=== PATIENT | male | born 1955 | race Caucasian/White ===

== ENCOUNTER → 2020-01-16 11:10 | Outpatient (CLI) | payer MEDICARE, SELFPAY ==
[2020-01-16 12:43] LABS: Basophils # 0.2 K/mm3 (0-0.2); Basophils % 1.6 % (0.1-2.0); Eosinophils # 0.4 K/mm3 (0.0-0.4); Eosinophils % 3.8 % (0.1-12.0); Hematocrit 45.5 % (42.0-52.0); Hemoglobin 14.6 g/dL (14.1-18.0); Lymphocytes % 31.3 % (10-50); Mean Corpuscular Hemoglobin 27.8 pg (27.0-31.2); Mean Corpuscular Volume 86.7 fl (80-94); Mean Platelet Volume 7.8 fl (7.4-10.4); Monocytes # 0.6 K/mm3 (0.1-1.0); Monocytes % 6.2 % (1.7-9.3); Neutrophils # 5.4 K/mm3 (1.8-7.8); Neutrophils % 57.1 % (37.0-80.0); Platelet Count 309 K/mm3 (142-424); Red Blood Count 5.25 M/mm3 (4.60-6.20); White Blood Count 9.4 K/mm3 (4.8-10.8)
[2020-01-16 13:18] LABS: Erythrocyte Sedimentation Rate 6 mm/hr (0-20)
[2020-01-17 14:56] LABS: Anti-Centromere B Antibodies <0.2 AI (0.0-0.9); Anti-Jo-1 <0.2 AI (0.0-0.9); Anti-Smith Antibody <0.2 AI (0.0-0.9); Antichromatin Antibodies <0.2 AI (0.0-0.9); Antiscleroderma-70 Antibodies <0.2 AI (0.0-0.9); RNP Antibodies <0.2 AI (0.0-0.9); Sjogren's Anti-SS-A <0.2 AI (0.0-0.9); Sjogren's Anti-SS-B <0.2 AI (0.0-0.9)
[2020-01-18 10:28] LABS: Anti-DNA (DS) Ab Qn 14 IU/mL (0-9)
== END ==
PROVIDERS: Visit Provider Specialist
DX: M35.3 Polymyalgia rheumatica (principal); R41.3 Other amnesia; R51 Headache
CPT/HCPCS: 36415; 85025; 85651; 86225; 86235

== ENCOUNTER → 2020-01-17 11:06 | Outpatient (CLI) | payer MEDICARE, SELFPAY | PROVIDERS: PCP Family Medicine; Visit Provider Specialist | DX: R41.3 Other amnesia (principal); R51 Headache; M35.3 Polymyalgia rheumatica ==

== ENCOUNTER → 2020-01-24 13:52 | Outpatient (CLI) | payer MEDICARE, SELFPAY ==
--- NOTE | 2020-01-24 13:52 | MR_ITS ---
PROCEDURE: MR ANGIO HEAD WO CON CLINICAL INDICATION: evaluation for MEDICAL DOCTOR [employer]UCLE[employer] MEDICINE vasculitis Memory loss, progressive memory loss, COMPARISON: No exams were available for comparison TECHNIQUE: 3D [id number] images performed without contrast. FINDINGS: There is a moderate degree of motion artifact which does obscure fine detail especially of the small vessels. There is occlusion of the right internal carotid artery. The right middle cerebral and anterior cerebral arteries reconstitute from the [id number]. The vertebral arteries are not imaged. The basilar artery has an unremarkable appearance. No large aneurysms are evident. Small aneurysms may not be seen due to the motion artifact. No obvious arteriovenous malformation. Single-shot MRV is unremarkable IMPRESSION: 1. Limited study secondary to motion artifact. No large aneurysms. Small aneurysms may not be seen with this technique. 2. Occlusion of the right internal carotid artery with reconstitution of the right MCA and anterior cerebral artery via the [id number] Dictated by: Austin Nieves MD 01/25/2020 08:22 Electronically signed by Austin Nieves MD in [facility] 01/25/2020 08:22
== END ==
PROVIDERS: PCP Family Medicine; Visit Provider Specialist
DX: M35.3 Polymyalgia rheumatica (principal); R41.3 Other amnesia; R51 Headache
CPT/HCPCS: 70544

== ENCOUNTER → 2020-01-31 15:29 | Outpatient (CLI) | payer MEDICARE, SELFPAY ==
--- NOTE | 2020-01-31 15:29 | CT_ITS ---
PROCEDURE: CT HEAD/BRAIN WO CON CLINICAL INDICATION: rt internal carotid artery occlus, eval for stroke Confusion COMPARISON: MR ANGIO HEAD WO CON from 01/24/2020 TECHNIQUE: Axial images obtained. All CT scans at the facility use one or more dose reduction, viz: automated exposure control, ma/kV adjustment per patient size (including targeted exams where dose is matched to indication, i.e. head), or iterative reconstruction technique. FINDINGS: No midline shift, mass effect, intracranial hemorrhage, hydrocephalus, or extra-axial fluid collection is evident. There is generalized atrophy with hypoattenuation of the periventricular white matter consistent with microangiopathic changes. The calvarium has an unremarkable appearance. No mastoid effusion. No sinus air-fluid level. There is calcification of both internal carotid arteries. There is mild mucosal thickening of the ethmoid sinuses IMPRESSION: No acute intracranial finding Dictated by: Austin Nieves MD 01/31/2020 19:08 Electronically signed by Austin Nieves MD in [facility] 01/31/2020 19:08
== END ==
PROVIDERS: PCP Family Medicine; Visit Provider Specialist
DX: R41.3 Other amnesia (principal); R51 Headache
CPT/HCPCS: 70450

== ENCOUNTER → 2020-02-09 08:43 | Outpatient (CLI) | payer MEDICARE, SELFPAY ==
[2020-02-09 10:08] LABS: Chol/HDL Ratio 4.9 (1-3.5); Cholesterol 233 mg/dl (140-200); HDL Cholesterol 48 mg/dl (40-60); Triglycerides 202 mg/dl (30-150); VLDL Cholesterol 40 mg/dL (0-40)
[2020-02-09 10:19] LABS: Direct LDL Cholesterol 170.89 mg/dL (100-129)
== END ==
PROVIDERS: Visit Provider Specialist
DX: I65.29 Occlusion and stenosis of unspecified carotid artery (principal)
CPT/HCPCS: 36415; 80061

== ENCOUNTER → 2020-03-18 13:40 | Outpatient (CLI) | payer MEDICARE, SELFPAY ==
[2020-03-18 16:00] LABS: Blood Urea Nitrogen 14 mg/dl (9-20); Calcium 9.4 mg/dl (8.4-10.2); Carbon Dioxide 24 mmol/L (22.0-30.0); Chloride 107 mmol/L (98-107); Estimated Glomerular Filt Rate 85 ml/min (>60); GFR (African American) 102 ML/MIN (>60); Glucose 90 mg/dl (74-100); Sodium 141 mmol/L (136-145)
== END ==
PROVIDERS: Visit Provider Specialist
DX: I65.23 Occlusion and stenosis of bilateral carotid arteries (principal)
CPT/HCPCS: 36415; 80048

== ENCOUNTER → 2020-03-19 12:40 | Outpatient (CLI) | payer MEDICARE, SELFPAY ==
--- NOTE | 2020-03-19 12:41 | CT_ITS ---
Procedure: CT ANGIO NECK CLINICAL HISTORY: calcification-bilat carotid arteries as seen on CT COMPARISON: No exams were available for comparison TECHNIQUE: IV Contrast: 100ml Optiray 350 Axial images obtained with sagittal and coronal reformats. All CT scans at the facility use one or more dose reduction, viz: automated exposure control, ma/kV adjustment per patient size (including targeted exams where dose is matched to indication, i.e. head), or iterative reconstruction technique. FINDINGS: There is a 50 percent stenosis of the proximal left subclavian artery. Left vertebral artery is dominant. There are non critical stenotic atheromatous changes of the proximal left internal carotid artery and cavernous portion of the left internal carotid artery. There is occlusion of proximal right internal carotid artery. The arterial anatomy of the anterior, middle, and the posterior fossa is unremarkable. 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
== END ==
PROVIDERS: PCP Family Medicine; Visit Provider Specialist
DX: I65.23 Occlusion and stenosis of bilateral carotid arteries (principal)
CPT/HCPCS: 70498; Q9967

== ENCOUNTER → 2020-04-22 10:32 | Outpatient (CLI) | payer MEDICARE, SELFPAY ==
--- NOTE | 2020-04-22 10:33 | CA_ITS ---
APPROVED REPORT EXAM: Comprehensive 2D, Doppler, and color-flow Echocardiogram Coroner: Anna Ramirez RDCS Ht: 6 ft 0 in Wt: 206lbs BSA: 2.16 BP: 138/88 mmHg Indications: SOA 2D Dimensions LVOT 2.26 cm (M/F) 1.5-2.5 M-Mode Dimensions RVDd 3.65 cm (0.9-2.6) LVDd 4.55 cm (3.5-5.7) LVDs 3.40 cm (3.5-5.7) IVSd 1.02 cm (0.6-1.1) PWd 1.02 cm (0.6-1.1) EF (Teich) 50.10% FS 25.30% EDV (Teich) 94.90 mL ESV (Teich) 47.40 mL LV Diastology E/A Ratio 0.70 Mitral Valve MV A Velocity 52.00 (40-130 cm/s) Left Ventricle Left atrium is mildly enlarged, left ventricle is normal size, visually estimated ejection fraction 55% with no regional wall motion abnormality, grade 1 diastolic dysfunction seen without tissue Doppler evidence of raise left atrial pressure. Right Ventricle Right atrium and right ventricle are mildly enlarged with normal contractility. Aortic Valve Aortic valve is minimally thickened and fibrosed, there is no aortic stenosis or aortic insufficiency. Mitral Valve Mitral valve leaflets are minimally thickened, there is no mitral stenosis, there is mild mitral regurgitation. Tricuspid Valve Tricuspid valve is grossly normal, there is mild tricuspid regurgitation, calculated right ventricular systolic pressure is 40 mmHg. Pulmonic Valve Pulmonic valve is poorly visualized. Great Vessels Aortic root is normal size. Pericardium No significant pericardial effusion noted. Conclusion 1. Mild biatrial enlargement, normal left ventricular size, preserved left ventricular systolic function, visually estimated ejection fraction 55% with no regional wall motion abnormality, grade 1 diastolic dysfunction seen without tissue Doppler evidence of raise left atrial pressure. 2. Mildly enlarged right ventricle with normal contractility. 3. Mild mitral and tricuspid regurgitation, calculated right ventricular systolic pressure is 40 mmHg. 4. No significant pericardial effusion noted. Electronically signed by : Javier Garcia, 04/22/2020 19:14:18
== END ==
PROVIDERS: PCP Family Medicine; Visit Provider Internal Medicine Cardiovascular Disease
DX: R06.00 Dyspnea, unspecified (principal); E78.5 Hyperlipidemia, unspecified; I10 Essential (primary) hypertension; I65.29 Occlusion and stenosis of unspecified carotid artery; I73.9 Peripheral vascular disease, unspecified
CPT/HCPCS: 93306

== ENCOUNTER → 2020-04-24 10:41 | Outpatient (CLI) | payer SELFPAY ==
--- NOTE | 2020-04-24 10:42 | CT_ITS ---
PROCEDURE: CT HEART W CALCIUM SCORE CLINICAL HISTORY: eval for cad COMPARISON: No exams were available for comparison TECHNIQUE: Axial images obtained with sagittal and coronal reformats. All CT scans at the facility use one or more dose reduction, viz: automated exposure control, ma/kV adjustment per patient size (including targeted exams where dose is matched to indication, i.e. head), or iterative reconstruction technique. FINDINGS: The coronary artery calcium score is 618 indicating extensive calcific plaque burden with very high cardiovascular disease risk. Incidental note is made of a medium-sized hiatal hernia and nonspecific thickening of the esophagus. IMPRESSION: Extensive calcific plaque burden with very high cardiovascular disease risk Hiatal hernia with thickened esophagus Dictated by: Austin Nieves MD 04/25/2020 07:42 Electronically signed by Austin Nieves MD in [facility] 04/25/2020 07:42
== END ==
PROVIDERS: PCP Family Medicine; Visit Provider Internal Medicine Cardiovascular Disease
DX: Z13.6 Encounter for screening for cardiovascular disorders (principal); R06.00 Dyspnea, unspecified; E78.5 Hyperlipidemia, unspecified; I10 Essential (primary) hypertension; I65.29 Occlusion and stenosis of unspecified carotid artery; I73.9 Peripheral vascular disease, unspecified
CPT/HCPCS: 75571

== ENCOUNTER → 2020-05-15 07:51 | Outpatient (CLI) | payer MEDICARE, SELFPAY ==
--- NOTE | 2020-05-15 | CA_ITS ---
APPROVED REPORT Exam: Exercise Treadmill Technologist: Aura Wagner Ht: 6 ft 0 in Wt: 200 lbs BSA: 2.13 m2 HR: 84 bpm BP: 139/81 mmHg Indications: Elevated calcium score, chest pain, shortness of breath Medical History Medications: Aspirin,,,,, Metoprolol,,,,, Losartan,,,,, MeMANTINE,,,,, RoSUVASTATIN,,,,, Stress Test Details Test: Umang HR Resting HR: 70 bpm Max Heart Rate (APMHR): 155 bpm Max HR Achieved: 130 bpm Target HR (85% APMHR): 131 bpm % of APMHR: 83 Recovery HR: 76 bpm BP Resting BP: 139.0/91.0 mmHg Max BP: 153.0/82.0 mmHg Recovery BP: 133.0/91.0 mmHg ECG Clinical Exercise duration: 04:32 min Highest Stage Achieved: Exercise capacity: 7.0 METs Stress ECG Conclusion Resting ECG: Normal sinus rhythm, T wave abnormalities inferiorly Patient exercised 4:32 on Umang Protocol, stopping due to shortness of air. Symptoms: No chest pain. Arrhythmias/Ectopy: Occasional PVC. ST-T Changes: Exaggeration of baseline T wave abnormalities. With exercise there is additional millimeter ST segment depression noted in the inferior leads. The EKG portion of the exercise treadmill stress test is nondiagnostic due to baseline abnormal EKG as well as patient not achieving the target heart rate. Conclusion: Nondiagnostic exercise treadmill stress test due to baseline abnormal EKG and patient not achieving the target heart rate, repeat study with myocardial perfusion imaging is recommended. Test Summary . Standing . . . . . Stop exercise at 04:32 . . . . . . Electronically signed by : Javier Garcia, 05/15/2020 18:04:49
== END ==
PROVIDERS: PCP Family Medicine; Visit Provider Internal Medicine Cardiovascular Disease
DX: R06.02 Shortness of breath (principal); R93.1 Abnormal findings on diagnostic imaging of heart and coronary circulation; I20.8 Other forms of angina pectoris
CPT/HCPCS: 93017

== ENCOUNTER 2020-06-20 08:33 | Day surgery (SDC) | payer MEDICARE, SELFPAY ==
[2020-06-20] VITALS (15 sets, daily range): BP systolic 120–185; BP diastolic 85–106; PULSE 49–75; RESP 16–18; TEMP 36.7; O2SAT 94–99; BMI 26.9
--- NOTE | 2020-06-20 09:00 | IR_ITS ---
APPROVED REPORT Patient Location: Outpatient PROCEDURES Left heart catheterization Left ventriculogram Selective coronary angiogram Drug-eluting stent deployment to the ostial proximal mid dominant right coronary in a contiguous manner Catheter placed in left subclavian artery Left subclavian artery selective angiogram INDICATION Angina pectoris, Coronary artery disease, Calcium score greater than 600, Known left subclavian artery stenosis Informed consent was obtained prior to the procedure. COMPLICATIONS NONE Estimated Blood Loss: less than 10 mls TECHNIQUE One percent lidocaine was used to anesthetize the right groin. The right femoral artery was accessed via the Seldinger technique. A 4-Vietnamese sheath was placed in the right femoral artery. The JL-4 and JR-4 catheter was also used to perform left heart catheterization left ventriculogram and selective coronary angiogram. At the end the diagnostic angiogram 4 Vietnamese sheath was exchanged for a 6 Vietnamese sheath and therapeutic heparin was administered giving a therapeutic ACT over 300. Eventually a long 6 Vietnamese 45 cm sheath was required due to tortuosity in the iliofemoral system. Ultimately a JR4 catheter was used and gauge the right coronary artery and a Choice PT extra-support wire was placed distally.two 3 mm x 38 mm resolute lucita stents were placed in the midsegment proximal and ostial segment in a contiguous manner. The first stent was deployed at 14 annelise with the proximal stent being deployed at 20 annelise. At the end of the procedure there was distal spasm therefore nitroglycerin was administered intra-arterially. At the end of the procedure there was excellent SARAH-3 flow. A small contained extravasation was identified distally most likely from the wire. An angiographic results the apparatus was removed the groin was reprepped gloves were changed sheath was removed good hemostasis was achieved using TR banding patient transferred to the postop holding in stable condition. During the diagnostic portion of the procedure the JR4 catheter was used to selectively intubate the left subclavian artery where a 10 mm Kennedy stenotic gradient was identified. ANGIOGRAPHIC RESULTS The left main artery Normal The left anterior descending artery Has proximal 10% and mid vessel 10% stenoses. The vessel was tortuous. The circumflex artery Is a nondominant vessel giving rise to a large first obtuse marginal artery. The very is very tortuous and so corkscrew like The right coronary artery Is a large dominant vessel is tortuous and has proximal 30% stenosis followed by an area of vascular ectasia followed by 50% stenosis followed by an additional mid vessel 80% stenosis The KOWALSKI ventriculogram reveals Normal 65% The left ventricular end-diastolic pressure 10 mmHg Left subclavian artery has an eccentric cleft-like plaque which produces a 10 mm trans-stenotic gradient. Left vertebral artery is a large-caliber vessel and has an ostial 80% stenosis IMPRESSION Coronary disease as described above Severe left vertebral artery stenosis as described above Mild to moderate left subclavian artery stenosis with a 10 mm transcanal gradient Successful stenting of the ostial proximal mid dominant right coronary severe disease reduced to 0% with 2 drug-eluting stents in a contiguous manner Normal ejection fraction Normal left ventricular end-diastolic pressure Heavily atheromatous infrarenal abdominal aorta with highly tortuous iliofemoral arteries PLAN 1. Dual antiplatelet therapy 2. Avoidance of tobacco products 3. LDL less than 55 4. Headache rehabilitation 5. Echocardiogram in 6 hours just prior to discharge to make sure the extravasation did not achie
[2020-06-20 09:17] LABS: Basophils # 0.1 K/mm3 (0-0.2); Basophils % 0.9 % (0.1-2.0); Eosinophils # 0.4 K/mm3 (0.0-0.4); Eosinophils % 4.1 % (0.1-12.0); Hematocrit 44.5 % (42.0-52.0); Hemoglobin 14.6 g/dL (14.1-18.0); Lymphocytes # 2.7 K/mm3 (0.7-4.5); Lymphocytes % 26.9 % (10-50); Mean Corpuscular HGB Conc 32.9 g/dL (31.8-35.4); Mean Corpuscular Hemoglobin 29.4 pg (27.0-31.2); Mean Corpuscular Volume 89.5 fl (80-94); Monocytes # 0.4 K/mm3 (0.1-1.0); Monocytes % 4.4 % (1.7-9.3); Neutrophils # 6.3 K/mm3 (1.8-7.8); Neutrophils % 63.7 % (37.0-80.0); Platelet Count 268 K/mm3 (142-424); Red Blood Count 4.97 M/mm3 (4.60-6.20); White Blood Count 9.9 K/mm3 (4.8-10.8)
[2020-06-20 09:22] LABS: Anion Gap 10.9 mEq/L (5-15); Blood Urea Nitrogen 13 mg/dl (9-20); Calcium 9.7 mg/dl (8.4-10.2); Carbon Dioxide 28 mmol/L (22.0-30.0); Chloride 106 mmol/L (98-107); Creatinine Clearance Estimated 78 mL/min (50-200); Estimated Glomerular Filt Rate 61 ml/min (>60); GFR (African American) 74 ML/MIN (>60); Glucose 105 mg/dl (74-100); Potassium 3.9 mmoL/L (3.5-5.1); Sodium 141 mmol/L (136-145)
[2020-06-20 09:48] LABS: Coronavirus 19 IgG Antibody Negative (Negative); Coronavirus 19 IgM Antibody Negative (Negative)
--- NOTE | 2020-06-20 13:30 | CA_ITS ---
APPROVED REPORT EXAM: Comprehensive 2D, Doppler, and color-flow Echocardiogram Quality Control Assessor: Cathi Diego RT(R) Ht: 6 ft 0 in Wt: 199lbs BSA: 2.13 BP: 122/68 mmHg Indications: CP, HTN, hyperlipidemia, family history of HD, CAD, heart cath today with extravasation seen. limited echo checking for effusion Conclusion 1. Limited transthoracic echocardiogram was performed to look for pericardial effusion 2. Normal left ventricular size preserved left ventricular systolic function. No regional wall motion abnormality in the obtained views 3. No obvious or significant pericardial effusion noted. Electronically signed by : Javier Garcia, 06/20/2020 15:29:12
[2020-06-20 14:39] LABS: CATHL Activated Clotting Time 345 SEC (74-125)
--- NOTE | 2020-06-20 14:58 | HMH.PHACLD ---
Dre Gomez has received discharge medication counseling on the following medications: PATIENT IS CURRENTLY TAKING LOSARTAN 50 MG DAILY, ASPIRIN DR 81 MG DAILY, METOPROLOL SUCCINATE 25 MG DAILY, AND ROSUVASTATIN 20 MG HS. STARTING BRILINTA 90 MG BID AFTER STENTING. DISCUSSED THIS WITH PATIENT'S SISTER WHICH IS A DIGITAL CAMERA TECHNICIAN FOR PATIENT.
== END 2020-06-20 15:09 | disposition home or self-care (01) ==
PROVIDERS: PCP Family Medicine; Visit Provider Internal Medicine
DX: E78.2 Mixed hyperlipidemia (principal); I10 Essential (primary) hypertension; I25.118 Atherosclerotic heart disease of native coronary artery with other forms of angina pectoris; I65.29 Occlusion and stenosis of unspecified carotid artery; I70.203 Unspecified atherosclerosis of native arteries of extremities, bilateral legs; I77.1 Stricture of artery; M79.602 Pain in left arm; R06.02 Shortness of breath; R93.1 Abnormal findings on diagnostic imaging of heart and coronary circulation; Z82.49 Family history of ischemic heart disease and other diseases of the circulatory system; E78.5 Hyperlipidemia, unspecified; Z95.5 Presence of coronary angioplasty implant and graft; I70.8 Atherosclerosis of other arteries
CPT/HCPCS: 36225; 80048; 85025; 85347; 86328; 92928; 93308; 93458; 99152; 99153; C1725; C1760; C1769; C1876; C1894; C9600; J1644; Q9967

== ENCOUNTER → 2020-06-27 09:16 | Outpatient (CLI) | payer MEDICARE, SELFPAY ==
[2020-06-27 09:33] LABS: Basophils # 0.1 K/mm3 (0-0.2); Basophils % 1.1 % (0.1-2.0); Eosinophils # 0.4 K/mm3 (0.0-0.4); Eosinophils % 3.6 % (0.1-12.0); Hematocrit 44.2 % (42.0-52.0); Lymphocytes # 2.4 K/mm3 (0.7-4.5); Lymphocytes % 21.8 % (10-50); Mean Corpuscular HGB Conc 33.9 g/dL (31.8-35.4); Mean Corpuscular Hemoglobin 29.6 pg (27.0-31.2); Mean Corpuscular Volume 87.2 fl (80-94); Mean Platelet Volume 7.7 fl (7.4-10.4); Monocytes # 0.6 K/mm3 (0.1-1.0); Neutrophils # 7.7 K/mm3 (1.8-7.8); Neutrophils % 68.5 % (37.0-80.0); Platelet Count 353 K/mm3 (142-424); Red Blood Count 5.07 M/mm3 (4.60-6.20); Red Cell Distribution Width 14.7 % (11.5-17.5); White Blood Count 11.2 K/mm3 (4.8-10.8)
[2020-06-27 09:39] LABS: Chloride 102 mmol/L (98-107); Potassium 3.5 mmoL/L (3.5-5.1); Sodium 140 mmol/L (136-145)
[2020-06-27 09:42] LABS: Anion Gap 16.5 mEq/L (5-15); Blood Urea Nitrogen 20 mg/dl (9-20); Carbon Dioxide 25 mmol/L (22.0-30.0); Estimated Glomerular Filt Rate 44 ml/min (>60); GFR (African American) 53 ML/MIN (>60)
[2020-06-27 09:43] LABS: Calcium 10.1 mg/dl (8.4-10.2); Glucose 120 mg/dl (74-100)
== END ==
PROVIDERS: Visit Provider Internal Medicine
DX: R06.02 Shortness of breath (principal); I25.10 Atherosclerotic heart disease of native coronary artery without angina pectoris; I10 Essential (primary) hypertension
CPT/HCPCS: 36415; 80048; 85025

== ENCOUNTER 2020-06-27 09:27 | Outpatient (RCR) | payer MEDICARE, SELFPAY | END 2020-11-27 13:50 | disposition home or self-care (01) | LOC: PT 09:27 | PROVIDERS: Visit Provider Internal Medicine | DX: Z95.5 Presence of coronary angioplasty implant and graft (principal) | CPT/HCPCS: 93798 ==

== ENCOUNTER 2020-07-03 15:12 | Emergency (ER) | payer MEDICARE, SELFPAY ==
--- NOTE | 2020-07-03 15:06 | ECG_ITS ---
APPROVED REPORT Exam: Resting ECG HR:80 bpm ECG Measurements Heart Rate 80 AXES NV 156 P 57 QRSd 92 QRS 45 QT 362 T 58 QTc 417 Conclusion Normal sinus rhythm Low voltage QRS Borderline ECG Electronically signed by : Quoc Castillo, 07/05/2020 13:52:39
[2020-07-03 15:12] VITALS: BP 112/76; PULSE 83; RESP 24; TEMP 36.4; O2SAT 98; BMI 28.5
--- NOTE | 2020-07-03 15:13 | HMH.EDGENADL ---
ED Disposition Clinical Impression: Acute kidney injury Hypotension Qualifiers: Hypotension type: unspecified hypotension type Qualified Code(s): I95.9 - Hypotension, unspecified Disposition: Home, Self-Care Condition on Discharge: Good Additional Instructions: Stop taking losartan/hydrochlorothiazide. See Dr. Huber in his office tomorrow or Wednesday. Return to the emergency department if symptoms worsen. Referrals: Quoc Huber MD [Primary Care Provider] - - Critical Care Critical Care Time: No Attestation: On , the high probability of a clinically significant, sudden or life threatening deterioration of the following system(s) required my full and direct attention, intervention and personal management. The time I documented below is in addition to time spent performing reported procedures but includes the following listed in this critical care notation. Medical Decision Making - Medical Records Medical records reviewed: Yes: I reviewed the patient's medical records. MR Comment: Reviewed heart cath results. Reviewed last cardiology office visit at which time he had the same complaints of shortness of breath and lightheadedness that he has today. - [place] Inquiry Pt receiving controlled substance: No Vital Signs: 07/03/20 15:12 07/03/20 15:38 07/03/20 17:00 Temperature 97.6 F Temperature Source Oral Pulse Rate Pulse Rate [Left Radial] 83 81 61 Respiratory Rate 24 Blood Pressure Blood Pressure [Right Arm] 112/76 124/86 143/99 H Blood Pressure Mean [Right Arm] 88 98 113 Blood Pressure Source Blood Pressure Source [Right Arm] Automatic Cuff Automatic Cuff Automatic Cuff Blood Pressure Position Blood Pressure Position [Right Arm] Sitting Sitting Sitting 02 Sat by Pulse Oximetry 98 97 98 Oxygen Delivery Method Room Air Nasal Cannula Room Air 07/03/20 18:33 Temperature 97.6 F Temperature Source Oral Pulse Rate 75 Pulse Rate [Left Radial] Respiratory Rate 13 Blood Pressure 137/83 Blood Pressure [Right Arm] Blood Pressure Mean [Right Arm] Blood Pressure Source Automatic Cuff Blood Pressure Source [Right Arm] Blood Pressure Position Sitting Blood Pressure Position [Right Arm] 02 Sat by Pulse Oximetry Oxygen Delivery Method Room Air - Lab Data Lab results reviewed: Yes: I reviewed the patient's lab results. Lab Results 07/03/20 15:10: WBC 10.4, RBC 5.00, Hgb 14.1, Hct 44.0, MCV 88.0, MCH 28.1, MCHC 32.0, RDW 14.1, Plt Count 424, MPV 7.8, Neut % (Auto) 66.0, Lymph % (Auto) 23.4, [place] % (Auto) 5.4, Eos % (Auto) 3.7, Baso % (Auto) 1.4, Neut # (Auto) 6.9, Lymph # (Auto) 2.4, [place] # (Auto) 0.6, Eos # (Auto) 0.4, Baso # (Auto) 0.2 07/03/20 15:10: Sodium 140, Potassium 3.5, Chloride 104, Carbon Dioxide 23, Anion Gap 16.5 H, BUN 29 H, Creatinine 2.30 H, Estimated Creat Clear 41, Estimated GFR 29 L, Est GFR ( Amer) 35 L, Glucose 157 H, Calcium 10.0, Troponin I < 0.01 07/03/20 15:10: Total Bilirubin 0.8, Direct Bilirubin 0.1, Conjugated Bilirubin 0.0, Indirect Bilirubin 0.7, Unconjugated Bilirubin 0.7, AST 30, ALT 14, Alkaline Phosphatase 101, Total Protein 7.8, Albumin 4.4 Result diagrams: 07/03/20 15:10 07/03/20 15:10 Orders (Tests/Meds): ED MEDICATIONS Discontinued Medications Generic Name Dose Route Start Last Admin Trade Name Adamsq PRN Reason Stop Dose Admin Sodium Chloride 1,000 mls @ 999 mls/hr 07/03/20 15:30 07/03/20 15:23 Sod Chlor 0.9% 1000ml Bag IV 07/03/20 16:30 999 mls/hr .Q1H1M SUZI Administration Sodium Chloride 1,000 ml 07/03/20 16:32 07/03/20 17:39 Sodium Chloride 0.9% 1000ml Bag IV 07/03/20 16:33 1,000 ml BOLUS ONE Administration - Radiology Data #1 Image(s): Chest Image Reviewed: Yes I have reviewed radiologist's interpretation PROCEDURE: XR CHEST PORTABLE CLINICAL HISTORY: chest pain COMPARISON: No exams were available for comparison FINDINGS: The cardiomediastinal silhouette and pulmonary
[2020-07-03 15:16] VITALS: BMI 25.7
--- NOTE | 2020-07-03 15:17 | XR_ITS ---
PROCEDURE: XR CHEST PORTABLE CLINICAL HISTORY: chest pain COMPARISON: No exams were available for comparison FINDINGS: The cardiomediastinal silhouette and pulmonary vascularity are within normal limits. The lungs are clear without infiltrates, suspicious nodules, or pleural effusions. There is a small hiatal hernia. No acute bony anomaly. IMPRESSION: Small hiatal hernia otherwise negative Dictated by: Austin Nieves MD 07/03/2020 16:02 Austin Nieves MD in [place] 07/03/2020 16:02
[2020-07-03 15:24] LABS: Basophils # 0.2 K/mm3 (0-0.2); Basophils % 1.4 % (0.1-2.0); Eosinophils # 0.4 K/mm3 (0.0-0.4); Eosinophils % 3.7 % (0.1-12.0); Hemoglobin 14.1 g/dL (14.1-18.0); Lymphocytes # 2.4 K/mm3 (0.7-4.5); Lymphocytes % 23.4 % (10-50); Mean Corpuscular Hemoglobin 28.1 pg (27.0-31.2); Mean Platelet Volume 7.8 fl (7.4-10.4); Monocytes # 0.6 K/mm3 (0.1-1.0); Monocytes % 5.4 % (1.7-9.3); Neutrophils # 6.9 K/mm3 (1.8-7.8); Platelet Count 424 K/mm3 (142-424); Red Cell Distribution Width 14.1 % (11.5-17.5); White Blood Count 10.4 K/mm3 (4.8-10.8)
[2020-07-03 15:32] LABS: Chloride 104 mmol/L (98-107); Potassium 3.5 mmoL/L (3.5-5.1); Sodium 140 mmol/L (136-145)
[2020-07-03 15:35] LABS: Anion Gap 16.5 mEq/L (5-15); Blood Urea Nitrogen 29 mg/dl (9-20); Carbon Dioxide 23 mmol/L (22.0-30.0); Creatinine Clearance Estimated 41 mL/min (50-200); Estimated Glomerular Filt Rate 29 ml/min (>60); GFR (African American) 35 ML/MIN (>60); Glucose 157 mg/dl (74-100)
[2020-07-03 15:38] VITALS: BP 124/86; PULSE 81; O2SAT 97
--- NOTE | 2020-07-03 15:42 | PC.NURSE ---
Dr Trevino speaking with Dr Chaves at this time.
[2020-07-03 16:07] LABS: Troponin I < 0.01 ng/ml (0.00-0.034)
--- NOTE | 2020-07-03 16:10 | PC.NURSE ---
Dr Trevino speaking with Dr Huber
[2020-07-03 16:20] LABS: Alanine Aminotransferase 14 U/L (12-78); Albumin Level 4.4 g/dl (3.5-5.0); Alkaline Phosphatase 101 U/L (38-126); Aspartate Amino Transferase 30 U/L (17-59); Bilirubin,Direct 0.1 mg/dl (0.0-0.4); Bilirubin,Indirect 0.7 mg/dL (0.0-0.9); Bilirubin,Total 0.8 mg/dl (0.2-1.3); Bilirubin,Unconjugated 0.7 mg/dL (0.0-1.1); Total Protein,Serum 7.8 g/dl (6.3-8.2)
[2020-07-03 17:00] VITALS: BP 143/99; PULSE 61; O2SAT 98
[2020-07-03 18:33] VITALS: BP 137/83; PULSE 75; RESP 13; TEMP 36.4; O2SAT 98
== END 2020-07-03 18:34 | disposition home or self-care (01) ==
PROVIDERS: Emergency Provider Emergency Medicine; PCP Family Medicine
DX: N17.9 Acute kidney failure, unspecified (principal); I95.9 Hypotension, unspecified; F41.8 Other specified anxiety disorders; I25.10 Atherosclerotic heart disease of native coronary artery without angina pectoris; E78.5 Hyperlipidemia, unspecified; I10 Essential (primary) hypertension; Z95.5 Presence of coronary angioplasty implant and graft; Z79.899 Other long term (current) drug therapy
CPT/HCPCS: 71045; 80048; 80076; 84484; 85025; 93005; 96365; 96367; 99283

== ENCOUNTER → 2020-07-08 09:53 | Outpatient (CLI) | payer MEDICARE, SELFPAY ==
--- NOTE | 2020-07-08 10:01 | US_ITS ---
PROCEDURE: US AORTA CLINICAL INDICATION: AAA AND BILATERAL BRUIT COMPARISON: No exams were available for comparison FINDINGS: There is mild fusiform dilatation of the mid abdominal aorta measuring 3.5 cm in maximum AP dimension. Proximal common iliacs are prominent measuring up to 1.8 cm on the right and 1.6 cm on the left transverse. IMPRESSION: 3.5 cm abdominal aortic aneurysm with mild dilatation of the proximal common iliacs Dictated by: Austin Nieves MD 07/08/2020 13:40 Austin Nieves MD in [facility] 07/08/2020 13:40
--- NOTE | 2020-07-08 10:02 | CA_ITS ---
APPROVED REPORT Character Impersonator: Debra Hamilton RVT Laterality: Bilateral Study Quality: Good Indications: bilateral carotid bruits, occlusion michelle Doppler Spectral Velocity Analysis ECA (R) 111.10/15.40 cm/s ECA (L) 88.50/14.00 cm/s dCCA (R) 55.90/9.20 cm/s dICA (L) 108.30/39.80 cm/s pCCA (R) 58.60/9.20 cm/s Aniceto (L) 83.40/30.20 cm/s pICA (L) 75.60/23.50 cm/s dCCA (L) 70.50/20.20 cm/s pCCA (L) 94.40/23.80 cm/s Vert (L) 28.00/10.80 cm/s ICA/CCA 1.54 Findings Study suggests total occlusion of the right internal cartoid artery unchanged from CTA neck study from 03/19/20. Study suggests 20-49% stenosis of the left internal cartoid artery. Antegrade flow seen in the left vertebral artery. Unable to obtain color flow in the right internal cartoid artery, ? occlusion. 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 Study suggests 20-49% stenosis of the left internal cartoid artery. Antegrade flow seen in the left vertebral artery. Unable to obtain color flow in the right internal cartoid artery, ? occlusion. Electronically signed by : Austin Nieves MD 07/08/2020 15:15:24
== END ==
PROVIDERS: PCP Family Medicine; Visit Provider Internal Medicine Cardiovascular Disease
DX: E78.2 Mixed hyperlipidemia (principal); I10 Essential (primary) hypertension; I25.10 Atherosclerotic heart disease of native coronary artery without angina pectoris; I73.9 Peripheral vascular disease, unspecified; I77.1 Stricture of artery; R06.02 Shortness of breath; R09.89 Other specified symptoms and signs involving the circulatory and respiratory systems; Z82.49 Family history of ischemic heart disease and other diseases of the circulatory system; I65.23 Occlusion and stenosis of bilateral carotid arteries
CPT/HCPCS: 76770; 93880

== ENCOUNTER → 2020-08-08 14:12 | Outpatient (CLI) | payer MEDICARE, SELFPAY ==
[2020-08-08 15:43] LABS: Chloride 104 mmol/L (98-107); Potassium 3.9 mmoL/L (3.5-5.1); Sodium 142 mmol/L (136-145)
[2020-08-08 15:46] LABS: Anion Gap 14.9 mEq/L (5-15); Blood Urea Nitrogen 22 mg/dl (9-20); Calcium 9.7 mg/dl (8.4-10.2); Carbon Dioxide 27 mmol/L (22.0-30.0); Estimated Glomerular Filt Rate 51 ml/min (>60); GFR (African American) 62 ML/MIN (>60); Glucose 88 mg/dl (74-100)
== END ==
PROVIDERS: Visit Provider Internal Medicine Cardiovascular Disease
DX: I10 Essential (primary) hypertension (principal); I25.10 Atherosclerotic heart disease of native coronary artery without angina pectoris; I65.23 Occlusion and stenosis of bilateral carotid arteries; I73.9 Peripheral vascular disease, unspecified; I77.1 Stricture of artery; R09.89 Other specified symptoms and signs involving the circulatory and respiratory systems; Z82.49 Family history of ischemic heart disease and other diseases of the circulatory system
CPT/HCPCS: 36415; 80048

== ENCOUNTER → 2020-12-05 14:38 | Outpatient (CLI) | payer MEDICARE, SELFPAY ==
[2020-12-05 15:50] LABS: Alanine Aminotransferase 14 U/L (12-78); Albumin Level 4.9 g/dl (3.5-5.0); Alkaline Phosphatase 129 U/L (38-126); Aspartate Amino Transferase 28 U/L (17-59); Bilirubin,Direct 0.1 mg/dl (0.0-0.4); Bilirubin,Indirect 0.8 mg/dL (0.0-0.9); Bilirubin,Total 0.9 mg/dl (0.2-1.3); Bilirubin,Unconjugated 0.8 mg/dL (0.0-1.1); Chol/HDL Ratio 3.3 (1-3.5); Cholesterol 140 mg/dl (140-200); HDL Cholesterol 42 mg/dl (40-60); Total Protein,Serum 8.4 g/dl (6.3-8.2); Triglycerides 144 mg/dl (30-150); VLDL Cholesterol 29 mg/dL (0-40)
[2020-12-05 16:02] LABS: Direct LDL Cholesterol 68.29 mg/dL (100-129)
== END ==
PROVIDERS: Visit Provider Internal Medicine Cardiovascular Disease
DX: E78.5 Hyperlipidemia, unspecified (principal); I10 Essential (primary) hypertension; I25.10 Atherosclerotic heart disease of native coronary artery without angina pectoris; I65.29 Occlusion and stenosis of unspecified carotid artery; I71.4 Abdominal aortic aneurysm, without rupture
CPT/HCPCS: 36415; 80061; 80076

== ENCOUNTER → 2022-01-02 17:03 | Outpatient (CLI) | payer MEDICARE, SELFPAY ==
[2022-01-12 10:04] LABS: Alanine Aminotransferase 16 U/L (12-78); Albumin Level 4.2 g/dl (3.5-5.0); Alkaline Phosphatase 111 U/L (38-126); Aspartate Amino Transferase 26 U/L (17-59); Bilirubin,Direct 0.1 mg/dl (0.0-0.4); Bilirubin,Indirect 1.1 mg/dL (0.0-0.9); Bilirubin,Total 1.2 mg/dl (0.2-1.3); Bilirubin,Unconjugated 1.1 mg/dL (0.0-1.1); Chol/HDL Ratio 3.6 (1-3.5); Cholesterol 129 mg/dl (140-200); HDL Cholesterol 36 mg/dl (40-60); Triglycerides 98 mg/dl (30-150); VLDL Cholesterol 20 mg/dL (0-40)
[2022-01-12 10:15] LABS: Direct LDL Cholesterol 67.76 mg/dL (100-129)
== END ==
PROVIDERS: Visit Provider Internal Medicine Cardiovascular Disease
DX: B35.1 Tinea unguium (principal); E66.3 Overweight; I71.4 Abdominal aortic aneurysm, without rupture; I73.9 Peripheral vascular disease, unspecified; L57.0 Actinic keratosis; L60.3 Nail dystrophy; M20.41 Other hammer toe(s) (acquired), right foot; M20.42 Other hammer toe(s) (acquired), left foot; M21.6X1 Other acquired deformities of right foot; M21.6X2 Other acquired deformities of left foot; M79.674 Pain in right toe(s); M79.675 Pain in left toe(s); Z68.27 Body mass index [BMI] 27.0-27.9, adult; Z79.899 Other long term (current) drug therapy
CPT/HCPCS: 36415; 80061; 80076

== ENCOUNTER → 2022-01-12 07:24 | Outpatient (CLI) | payer MEDICARE, SELFPAY ==
--- NOTE | 2022-01-12 07:24 | US_ITS ---
FINAL REPORT CLINICAL HISTORY: AAA COMPARISON: July 08, 2020 FINDINGS: Limited sonographic images were obtained of the retroperitoneal to evaluate the abdominal aorta and iliac arteries. The abdominal aorta measures up to 3.4 cm in greatest dimension. It previously measured 3.5 cm so is not significantly changed. The iliac arteries are at the upper limits of normal. IMPRESSION: Abdominal aortic aneurysm, not significantly changed. Reviewed, Interpreted and Dictated by Dewey Siegel III, MD Transcribed by Hayley Antonio Authenticated by Dewey Siegel III, MD on 01/12/2022 12:30:28 PM [facility]
--- NOTE | 2022-01-12 07:57 | CA_ITS ---
FINAL REPORT TECHNIQUE: Color Doppler, duplex Doppler and fleming scale sonography of the bilateral neck arterial vasculature was performed. Velocities were measured in the carotid arteries. Stenosis evaluation based on the validated velocity criteria. CLINICAL HISTORY: [place], Known Rt ICA occlusion. FINDINGS: The peak systolic velocity of the right common carotid artery is 39 cm/s. No flow is seen in the right ICA consistent with occlusion or slow flow. The peak systolic velocity of the left common carotid artery is 80 cm/s. The peak systolic velocity of the left internal carotid artery is 78 cm/s and end diastolic velocity 35 cm/s. A small amount of plaque is present. The left external carotid artery is patent.The left vertebral artery is patent with antegrade flow. IMPRESSION: Nonvisualization of the right ICA consistent with occlusion or slow flow. Less than 50% stenosis of the left ICA. If indicated, CTA or MRA could further evaluate. Reviewed, Interpreted and Dictated by Dewey Siegel III, MD Transcribed by Nina Bateman Authenticated by Dewye Siegel III, MD on 01/12/2022 09:55:27 AM [facility]
== END ==
PROVIDERS: PCP Family Medicine; Visit Provider Internal Medicine Cardiovascular Disease
DX: I71.4 Abdominal aortic aneurysm, without rupture (principal); R09.89 Other specified symptoms and signs involving the circulatory and respiratory systems
CPT/HCPCS: 76770; 93880

== ENCOUNTER 2022-06-21 15:04 | Emergency (ER) | payer MEDICARE, SELFPAY ==
[2022-06-21 15:06] VITALS: BP 170/93; PULSE 68; RESP 17; TEMP 36.9; O2SAT 98; BMI 27.1
--- NOTE | 2022-06-21 15:35 | HMH.EDGENADL ---
Discharge Plan Disposition Patient Disposition: Home, Self-Care Condition: Good Chief Complaint: PAIN Prescriptions Prescriptions: No Action escitalopram oxalate 10 mg tablet 10 mg PO multivitamin [One-A-Day Essential] Tablet 1 tab PO DAILY aspirin [Adult Aspirin Regimen] 81 mg tablet,delayed release (DR/EC) 81 mg PO DAILY rivastigmine 9.5 mg/24 hour patch 24 hour 9.5 mg TRANSDERMA memantine 28 mg capsule,sprinkle,ER 24hr 28 mg PO DAILY Qty: 90 3RF metoprolol succinate 25 mg tablet extended release 24 hr See Rx Instructions .ROUTE .COMPLEX Qty: 90 1RF Dose Instruction: TAKE ONE TABLET BY MOUTH EVERY DAY FOR HIGH BLOOD PRESSURE Rx Instructions: TAKE ONE TABLET BY MOUTH EVERY DAY FOR HIGH BLOOD PRESSURE hydrochlorothiazide 12.5 mg tablet See Rx Instructions .ROUTE .COMPLEX Qty: 90 1RF Dose Instruction: TAKE ONE TABLET BY MOUTH EACH MORNING Rx Instructions: TAKE ONE TABLET BY MOUTH EACH MORNING clopidogrel 75 mg tablet See Rx Instructions .ROUTE .COMPLEX Qty: 90 5RF Dose Instruction: TAKE ONE TABLET BY MOUTH EVERY DAY Rx Instructions: TAKE ONE TABLET BY MOUTH EVERY DAY atorvastatin 80 mg tablet See Rx Instructions .ROUTE .COMPLEX Qty: 90 0RF Dose Instruction: TAKE 1 TABLET BY MOUTH ONCE DAILY Rx Instructions: TAKE 1 TABLET BY MOUTH ONCE DAILY Referrals Follow up/Referrals: Provider,MD Little [Primary Care Provider] - See instructions Dewey Hewitt MD [Staff Physician] - See instructions Activity Restrictions/Add. Instructions Additional Instructions/Restrictions: Avoid straining. No lifting greater than 10 pounds. If hernia protrusion again, lie flat on your back and apply gentle pressure over the hernia. If unable to get the hernia pushed back in or if severe hernia pain, abdominal pain, or vomiting return to the emergency department. Follow-up with general surgery, Dr. Hewitt, call for appointment. Clinical Impressions Clinical Impression: Hernia, inguinal, right Discharge ED Provider: Yung Trevino General Adult HPI General Chief complaint: PAIN Stated complaint: knot in groin area Time Seen by Provider: 06/21/22 15:25 Mode of Arrival: Ambulatory Source of Information: Patient Limitations: No Limitations Description of Symptoms (Recalled from ER Triage Doc. by RN): Pt c/o rt groin pain that extens into rt lower back since yesterday that worsens with movement. History of Present Illness HPI narrative: Patient complains of a lump in his right groin that appeared yesterday. Today the pain is worse and radiates to his back. No vomiting. No prior history of a lump or mass in that area. No history of a hernia. No injury. Related Data Home Medications Medication Instructions Recorded Confirmed aspirin 81 mg tablet,delayed 81 mg PO DAILY heart health 02/12/20 06/17/22 release (Adult Aspirin Regimen) escitalopram oxalate 10 mg tablet 10 mg PO 05/01/21 06/17/22 rivastigmine 9.5 mg/24 hour 9.5 mg transdermal 09/15/21 06/17/22 transdermal patch multivitamin (One-A-Day Essential 1 tab PO DAILY 06/17/22 06/17/22 tablet) Previous Rx's Medication Instructions Recorded memantine 28 mg capsule 28 mg PO DAILY #90 ea 10/08/20 sprinkle,extended release 24hr hydrochlorothiazide 12.5 mg tablet See Rx Instructions .Route 12/22/21 .COMPLEX #90 tabs metoprolol succinate 25 mg See Rx Instructions .Route 12/22/21 tablet,extended release 24 hr .COMPLEX #90 tabs clopidogrel 75 mg tablet See Rx Instructions .Route 03/23/22 .COMPLEX #90 tabs atorvastatin 80 mg tablet See Rx Instructions .Route 06/17/22 .COMPLEX #90 ea Allergies Allergy/AdvReac Type Severity Reaction Status Date / Time No Known Allergies Allergy Verified 06/17/22 14:42 [facility] Medical History (Updated 06/21/22 @ 15:40 by Yung Trevino MD) AAA (abdominal aortic aneurysm) Agatston coronary artery ca
--- NOTE | 2022-06-21 15:36 | PC.NURSE ---
Dr Trevino in with pt, reduced inguinal hernia
[2022-06-21 15:57] VITALS: BP 168/79; PULSE 71; RESP 15; TEMP 36.8; O2SAT 99
== END 2022-06-21 16:02 | disposition home or self-care (01) ==
PROVIDERS: Emergency Provider Emergency Medicine
DX: K40.90 Unilateral inguinal hernia, without obstruction or gangrene, not specified as recurrent (principal); Z79.01 Long term (current) use of anticoagulants; Z79.899 Other long term (current) drug therapy; I71.4 Abdominal aortic aneurysm, without rupture; I51.9 Heart disease, unspecified; I25.10 Atherosclerotic heart disease of native coronary artery without angina pectoris; I70.8 Atherosclerosis of other arteries
CPT/HCPCS: 99212; G0463

== ENCOUNTER → 2022-07-21 14:42 | Outpatient (CLI) | payer MEDICARE, SELFPAY ==
--- NOTE | 2022-07-21 15:01 | ECG_ITS ---
APPROVED REPORT Exam: Resting ECG HR:50 bpm ECG Measurements Heart Rate 50 AXES PA 189 P 26 QRSd 85 QRS 26 QT 402 T 32 QTc 377 Conclusion SINUS BRADYCARDIA BORDERLINE ECG UNCONFIRMED REPORT Electronically signed by : Quoc Castillo MD 07/21/2022 20:02:51
[2022-07-21 16:53] LABS: Basophils # 0.1 K/mm3 (0-0.2); Basophils % 1.1 % (0.1-2.0); Eosinophils # 0.5 K/mm3 (0.0-0.4); Eosinophils % 4.7 % (0.1-12.0); Hematocrit 41.4 % (42.0-52.0); Hemoglobin 13.4 g/dL (14.1-18.0); Lymphocytes # 2.8 K/mm3 (0.7-4.5); Lymphocytes % 28.5 % (10-50); Mean Corpuscular HGB Conc 32.4 g/dL (31.8-35.4); Mean Corpuscular Hemoglobin 28.6 pg (27.0-31.2); Mean Corpuscular Volume 88.3 fl (80-94); Mean Platelet Volume 7.9 fl (7.4-10.4); Monocytes # 0.5 K/mm3 (0.1-1.0); Monocytes % 4.7 % (1.7-9.3); Platelet Count 313 K/mm3 (142-424); Red Blood Count 4.69 M/mm3 (4.60-6.20); Red Cell Distribution Width 14.5 % (11.5-17.5); White Blood Count 9.8 K/mm3 (4.8-10.8)
[2022-07-21 17:32] LABS: Chloride 98 mmol/L (98-107); Potassium 4.5 mmoL/L (3.5-5.1); Sodium 138 mmol/L (136-145)
[2022-07-21 17:35] LABS: Anion Gap 15.5 mEq/L (5-15); Blood Urea Nitrogen 23 mg/dl (9-20); Calcium 9.6 mg/dl (8.4-10.2); Carbon Dioxide 29 mmol/L (22.0-30.0); Estimated Glomerular Filt Rate 51 ml/min (>60); GFR (African American) 61 ML/MIN (>60); Glucose 87 mg/dl (74-100)
== END ==
PROVIDERS: PCP Family Medicine; Visit Provider Surgery
DX: K40.90 Unilateral inguinal hernia, without obstruction or gangrene, not specified as recurrent (principal); I65.23 Occlusion and stenosis of bilateral carotid arteries; Z01.818 Encounter for other preprocedural examination
CPT/HCPCS: 36415; 80048; 85025; 93005

== ENCOUNTER 2022-09-28 06:03 | Day surgery (SDC) | payer MEDICARE, SELFPAY ==
[2022-09-11 10:42] VITALS: BMI 26.9
[2022-09-28] VITALS (11 sets, daily range): BP systolic 113–140; BP diastolic 75–93; PULSE 67–77; RESP 14–18; TEMP 36.3–43; O2SAT 92–98
--- NOTE | 2022-09-28 06:58 | EXP.GEN.HP ---
HPI HPI HPI: Patient presents for right inguinal hernia repair.? He is a 67-year-old male with some dementia with history of abdominal aortic aneurysm, carotid artery disease with stenting by Dr. Chaves, coronary artery disease, chronic arterial occlusive disease.? He is on aspirin and Plavix.? On 06/21/2022 he had developed some significant painful lump in the right groin area with radiation to his back and was seen in the emergency department.? He was able to be managed as an outpatient with outpatient surgical follow-up.? He has had some ongoing symptomatology.? I saw him in the office on 06/30/2022.? Patient did have a right inguinal hernia.? I had him undergo cardiac risk assessment and he has been cleared for surgery.? Of note, abdominal aortic aneurysm is 3.4 cm on abdominal ultrasound several months ago. [facility] Disclaimer: The information contained in this section may have been updated after the patient was seen, as this information can be updated by other users. Medical History AAA (abdominal aortic aneurysm) Agatston coronary artery calcium score greater than 400 Alzheimer's dementia without behavioral disturbance Atypical angina Bilateral carotid bruits CAD (coronary artery disease) Encounter for pre-operative cardiovascular clearance Family history of heart disease Left arm pain Subclavian artery stenosis, left Surgical History History of surgery Hx of heart artery stent Family History Other Family history of cancer Family history of cardiac disorder Family history of diabetes mellitus Social History Smoking Status: Current every day smoker alcohol intake: never substance use type: marijuana current occupational status: retired and disabled Travel in the last 8 weeks: None household members: none housing: house current occupational exposures/hazards: No Review of Systems Review of Systems Review of systems:: pertinent systems reviewed and negative unless documented below Meds Home Medications and Allergies Home Medications Medication Instructions Recorded Confirmed Type aspirin 81 mg tablet,delayed 81 mg PO DAILY heart health 02/12/20 09/24/22 History release (Adult Aspirin Regimen) escitalopram oxalate 10 mg tablet 10 mg PO DAILY mood 05/01/21 09/24/22 History rivastigmine 9.5 mg/24 hour 9.5 mg transdermal DAILY * 09/15/21 09/24/22 History transdermal patch multivitamin (One-A-Day Essential 1 tab PO DAILY Supplement 06/17/22 09/24/22 History tablet) clopidogrel 75 mg tablet See Rx Instructions .Route 09/11/22 09/24/22 History .COMPLEX Blood thinner hydrochlorothiazide 12.5 mg tablet See Rx Instructions .Route 09/11/22 09/24/22 History .COMPLEX bp memantine 28 mg capsule 28 mg PO DAILY alzheimers 09/11/22 09/24/22 History sprinkle,extended release 24hr metoprolol succinate 25 mg See Rx Instructions .Route 09/11/22 09/24/22 History tablet,extended release 24 hr .COMPLEX BP atorvastatin 80 mg tablet 80 mg PO DAILY choleterol #90 tabs 09/14/22 09/24/22 Rx New Prescriptions to Start Prescriptions: Allergies Allergy/AdvReac Type Severity Reaction Status Date / Time No Known Allergies Allergy Verified 09/24/22 08:46 Exam Data for Last 24 hours Vital signs and Labs for Last 24 Hours: Temp Pulse Resp BP Pulse Ox 97.3 F L 67 18 140/81 95 09/28/22 06:36 09/28/22 06:36 09/28/22 06:36 09/28/22 06:36 09/28/22 06:36 *Routine HEENT Exam Head: Present normocephalic Eye: Present EOMI ENT: Present mucous membranes moist *Routine Respiratory Exam Respiratory: Absent accessory muscle use or patient mechanically ventilated *Routine Cardiovascular Exam Cardiovascular: Present RRR *Routine Abdominal Exam Abdominal: Present
[2022-09-28 07:00] LABS: Basophils # 0.1 K/mm3 (0-0.2); Basophils % 0.7 % (0.1-2.0); Eosinophils # 0.6 K/mm3 (0.0-0.4); Eosinophils % 5.1 % (0.1-12.0); Hematocrit 40.6 % (42.0-52.0); Hemoglobin 13.1 g/dL (14.1-18.0); Lymphocytes # 2.7 K/mm3 (0.7-4.5); Lymphocytes % 23.1 % (10-50); Mean Corpuscular HGB Conc 32.3 g/dL (31.8-35.4); Mean Corpuscular Volume 83.7 fl (80-94); Mean Platelet Volume 8.1 fl (7.4-10.4); Monocytes # 0.6 K/mm3 (0.1-1.0); Monocytes % 5.4 % (1.7-9.3); Neutrophils # 7.6 K/mm3 (1.8-7.8); Neutrophils % 65.7 % (37.0-80.0); Platelet Count 349 K/mm3 (142-424); Red Blood Count 4.86 M/mm3 (4.60-6.20); Red Cell Distribution Width 14.8 % (11.5-17.5); White Blood Count 11.5 K/mm3 (4.8-10.8)
[2022-09-28 07:07] LABS: Anion Gap 12.6 mEq/L (5-15); Blood Urea Nitrogen 23 mg/dl (9-20); Calcium 9.3 mg/dl (8.4-10.2); Carbon Dioxide 26 mmol/L (22.0-30.0); Chloride 103 mmol/L (98-107); Creatinine Clearance Estimated 65 mL/min (50-200); Estimated Glomerular Filt Rate 51 ml/min (>60); GFR (African American) 61 ML/MIN (>60); Glucose 104 mg/dl (74-100); Potassium 3.6 mmoL/L (3.5-5.1); Sodium 138 mmol/L (136-145)
--- NOTE | 2022-09-28 07:09 | SUR.PREOP ---
Assisted patient to BR and back to stretcher . Stated he was comfortable
--- NOTE | 2022-09-28 07:28 | P.PN_ITS ---
[facility] Disclaimer: The information contained in this section may have been updated after the patient was seen, as this information can be updated by other users. Medical History AAA (abdominal aortic aneurysm) Agatston coronary artery calcium score greater than 400 Alzheimer's dementia without behavioral disturbance Atypical angina Bilateral carotid bruits CAD (coronary artery disease) Encounter for pre-operative cardiovascular clearance Family history of heart disease Left arm pain Subclavian artery stenosis, left Surgical History History of surgery Hx of heart artery stent Family History Other Family history of cancer Family history of cardiac disorder Family history of diabetes mellitus Social History Smoking Status: Current every day smoker alcohol intake: never substance use type: marijuana current occupational status: retired and disabled Travel in the last 8 weeks: None household members: none housing: house current occupational exposures/hazards: No [facility] Anesthesia Checklist Patient Identification Patient Identification: Arm Band Structural Data Admitted From: Home Planned Operative Procedure/s: Right Open Inguinal Hernia Repair Consent for Planned Operative Procedure(s) Verified: Yes Verified Documents: Surgical Consent and History and Physical NPO Status Verified Time NPO: 00:00 Additional verifications Anesthesia Reactions: No Hx Blood Transfusions: No Blood Transfusion Reaction: No Airway Assessment C-Spine Mobility Assessed: Yes TMJ Mobility Assessed: Yes Dentition: Poor Dentition Neurological Assessment Level of Consciousness: Awake and Alert Anesthesia Plan Anesthesia Risk discussed: Yes Anesthesia Plan: Verified ASA Class: III Anesthesia Type: General
--- NOTE | 2022-09-28 08:31 | EXP.OP.NOTE ---
Date of procedure: 09/28/22 Pre-op Diagnosis:: Right inguinal hernia Post-op Diagnosis:: Same Procedure performed:: Open repair of right inguinal hernia with placement of large Bard prefix mesh with plug Surgeon:: Dewey Hewitt MD CLIENT LIAISON:: Chidi Retana Anesthesia: GETGonzalo Estimated blood loss (mL): 10 Clinical Note:: Patient presents for right inguinal hernia repair.? He is a 67-year-old male with some dementia with history of abdominal aortic aneurysm, carotid artery disease with stenting by Dr. Chaves, coronary artery disease, chronic arterial occlusive disease.? He is on aspirin and Plavix.? On 06/21/2022 he had developed some significant painful lump in the right groin area with radiation to his back and was seen in the emergency department.? He was able to be managed as an outpatient with outpatient surgical follow-up.? He has had some ongoing symptomatology.? I saw him in the office on 06/30/2022.? Patient did have a right inguinal hernia.? I had him undergo cardiac risk assessment and he has been cleared for surgery.? Of note, abdominal aortic aneurysm is 3.4 cm on abdominal ultrasound several months ago. Operative findings:: He had a small to moderate indirect hernia with herniated fat and a moderate hernia sac Operative note:: Patient was taken to the operating room. He was given preoperative intravenous antibiotics. In the operating room he was placed in a supine position. Woodall catheter was placed after induction of general anesthesia. Lower abdomen and perineum were prepped and draped in the standard surgical fashion. Oblique skin incision was made in the right inguinal area superior to landmarks identifying the inguinal ligament. Dissection was carried down through subcutaneous tissues and Kimmie's fascia using electrocautery. External oblique muscle was exposed. The external bleak muscle was opened along the length of its fibers. Underlying ilioinguinal nerve was protected and preserved. Cord structures were dissected free from the inguinal floor and encircled with a [place] drain. Dissection was carried out of the cord. There is some herniated preperitoneal fat as an indirect hernia which was dissected free from the cord and reduced. There was a small to moderate hernia sac as well which was dissected free from the cord and reduced without excision. A large sized Bard prefix mesh plug was inserted into the region of the internal ring where the defect existed and it was secured to the shelving edge of the inguinal ligament and to the transversalis fascia with a few interrupted 2-0 PDS. The floor of the inguinal canal was then repaired with the onlay mesh suturing it to Ashu's ligament with a running 2-0 PDS along the shelving edge of the inguinal ligament. It was secured superomedially to the transversalis fascia with interrupted 2-0 PDS. The 2 tails of the mesh were sutured to 1 another with several interrupted 2-0 PDS to reconstruct the internal ring. Cord structures were then returned to the normal anatomic position. Local anesthetic was infiltrated in the surrounding tissues as well as for an inguinal nerve block. Wound was irrigated. There was good hemostasis. External bleak muscle was closed over the cord structures with a running 2-0 Vicryl. Kimmie's fascia was closed with running 2-0 Vicryl. Skin was closed with 4-0 Monocryl in a running subcuticular fashion. Dermabond and clean dry sterile dressing was applied. Condition: stable Disposition: PACU Complications:: None immediately apparent
--- NOTE | 2022-09-28 08:38 | EXP.ANES.I ---
[facility] Anesthesia Record Part I Anesthesia Record I Intake, IV Amount: 1,000 Estimated blood loss (mL): 10 Urine output (mL): 50 Blood Products used (#): none Blood Pressure: 132/90 SaO2: 93 Pulse Rate: 71 Respiratory Rate: 16 Temperature: 97.6 F Patient is:: Drowsy and Stable Stable to PACU at:: 08:35
[2022-09-28 13:35] LABS: Microscopic,Cath URINE MICROSCOPIC (MICROSCOPIC)
[2022-09-28 14:06] LABS: Appearance,Urine/Cath CLEAR (Clear); Bilirubin,Cath Negative (Negative); Blood, Urine/Cath Negative (Negative); Color,Urine/Cath YELLOW (Yellow); Glucose,Urine/Cath (UA) Negative (Negative); Ketones,Urine/Cath TRACE (Negative); Leukocyte Esterase,Cath Negative (Negative); Nitrate,Cath Negative (Negative); Protein,Urine/Cath Negative (Negative); Urobilinogen,Cath 0.2 EU/dl (0.2)
[2022-09-28 14:32] LABS: Bacteria,Urine/Cath TRACE /lpf; Squamous Epithelial Ur./Cath Occasional #/hpf (0-5)
--- NOTE | 2022-09-28 14:50 | EXP.ANES.II ---
[facility] Anesthesia Record Part II Anesthesia Record Part II Discharge Time: 09:05 Destination: Surgical Day Care (OP Surgery) PACU nurse assessment reviewed?: Yes Patient Condition:: Good Anesthesia Complications:: None Swallowing reflex intact?: Yes Cyanosis?: No Blood Pressure: 123/78 Pulse Rate: 72 Temperature: 97.5 F Mental Status: Alert & Oriented Pain level:: 0 Nausea and/or vomitting:: None Intake, IV Amount: 0
== END 2022-09-28 09:40 | disposition home or self-care (01) ==
PROVIDERS: PCP Family Medicine; Visit Provider Surgery
DX: K40.90 Unilateral inguinal hernia, without obstruction or gangrene, not specified as recurrent (principal); Z79.899 Other long term (current) drug therapy
CPT/HCPCS: 49505; 80048; 81001; 85025; 96374; J2405

== ENCOUNTER 2022-10-08 15:27 | Emergency (ER) | payer MEDICARE, SELFPAY ==
[2022-10-08 15:30] VITALS: BP 139/88; PULSE 52; RESP 18; TEMP 36.7; O2SAT 96; BMI 24.4
[2022-10-08 15:45] VITALS: BP 139/88; PULSE 49; O2SAT 96
--- NOTE | 2022-10-08 16:15 | ECG_ITS ---
APPROVED REPORT Exam: Resting ECG HR:63 bpm ECG Measurements Heart Rate 63 AXES [place] 175 P 33 QRSd 97 QRS 24 QT 405 T 51 QTc 413 Conclusion SINUS RHYTHM NORMAL ECG UNCONFIRMED REPORT Electronically signed by : Quoc Castillo MD 10/09/2022 10:06:34
[2022-10-08 16:18] LABS: Basophils # 0.2 K/mm3 (0-0.2); Basophils % 1.6 % (0.1-2.0); Eosinophils # 0.3 K/mm3 (0.0-0.4); Eosinophils % 2.2 % (0.1-12.0); Hematocrit 40.9 % (42.0-52.0); Hemoglobin 12.9 g/dL (14.1-18.0); Lymphocytes # 2.3 K/mm3 (0.7-4.5); Lymphocytes % 19.8 % (10-50); Mean Corpuscular HGB Conc 31.6 g/dL (31.8-35.4); Mean Corpuscular Hemoglobin 27.1 pg (27.0-31.2); Mean Corpuscular Volume 85.6 fl (80-94); Mean Platelet Volume 8.1 fl (7.4-10.4); Monocytes # 0.5 K/mm3 (0.1-1.0); Monocytes % 4.3 % (1.7-9.3); Neutrophils # 8.5 K/mm3 (1.8-7.8); Neutrophils % 72.1 % (37.0-80.0); Platelet Count 413 K/mm3 (142-424); Red Blood Count 4.78 M/mm3 (4.60-6.20); Red Cell Distribution Width 15.5 % (11.5-17.5); White Blood Count 11.8 K/mm3 (4.8-10.8)
--- NOTE | 2022-10-08 16:19 | HMH.EDGENADL ---
Discharge Plan Disposition Patient Disposition: Home, Self-Care Condition: Good Prescriptions Prescriptions: New olanzapine 2.5 mg tablet 2.5 mg PO DAILY PRN (Reason: agitation and restlessness) Qty: 14 0RF No Action escitalopram oxalate 10 mg tablet 10 mg PO DAILY multivitamin [One-A-Day Essential] Tablet 1 tab PO DAILY aspirin [Adult Aspirin Regimen] 81 mg tablet,delayed release (DR/EC) 81 mg PO DAILY rivastigmine 9.5 mg/24 hour patch 24 hour 9.5 mg TRANSDERMA DAILY atorvastatin 80 mg tablet 80 mg PO DAILY Qty: 90 3RF clopidogrel 75 mg tablet See Rx Instructions .ROUTE .COMPLEX Rx Instructions: TAKE ONE TABLET BY MOUTH EVERY DAY metoprolol succinate 25 mg tablet extended release 24 hr See Rx Instructions .ROUTE .COMPLEX Rx Instructions: TAKE ONE TABLET BY MOUTH EVERY DAY FOR HIGH BLOOD PRESSURE hydrochlorothiazide 12.5 mg tablet See Rx Instructions .ROUTE .COMPLEX Rx Instructions: TAKE ONE TABLET BY MOUTH EACH MORNING memantine 28 mg capsule,sprinkle,ER 24hr 28 mg PO DAILY hydrocodone-acetaminophen 5-325 mg Tablet 1 - 2 tab PO Q6H PRN (Reason: Pain) Qty: 21 0RF ondansetron HCl 4 mg tablet 4 mg PO DAILY Qty: 30 0RF Referrals Follow up/Referrals: Gonzalo Demarco MD [Primary Care Provider] - See instructions Clinical Impressions Clinical Impression: Agitation due to dementia Discharge ED Provider: Miko Khan General Adult HPI General Chief complaint: Anxiety Stated complaint: 09/28 Hernia SurgAMS, light headed, anxious Time Seen by Provider: 10/08/22 15:42 History of Present Illness HPI narrative: This is a 67-year-old male with history of CAD, hypertension, hyperlipidemia, peripheral arterial disease, AAA, dementia who is presenting with agitation and restlessness. states that patient has been progressively restless for the past 24 hours. No new medications, patient has also been complaining of intermittent dizziness without having falls. Denies confusion, aggressive behavior, or any other changes. Patient states that he does not have headaches, but intermittently feels dizzy. No weakness, trauma, nausea, vomiting, recent illness, chest pain, shortness of breath, or any other concerns. Related Data Home Medications Medication Instructions Recorded Confirmed aspirin 81 mg tablet,delayed 81 mg PO DAILY [facility] 02/12/20 09/24/22 release (Adult Aspirin Regimen) escitalopram oxalate 10 mg tablet 10 mg PO DAILY mood 05/01/21 09/24/22 rivastigmine 9.5 mg/24 hour 9.5 mg transdermal DAILY * 09/15/21 09/24/22 transdermal patch multivitamin (One-A-Day Essential 1 tab PO DAILY Supplement 06/17/22 09/24/22 tablet) clopidogrel 75 mg tablet See Rx Instructions .Route 09/11/22 09/24/22 .COMPLEX Blood thinner hydrochlorothiazide 12.5 mg tablet See Rx Instructions .Route 09/11/22 09/24/22 .COMPLEX bp memantine 28 mg capsule 28 mg PO DAILY alzheimers 09/11/22 09/24/22 sprinkle,extended release 24hr metoprolol succinate 25 mg See Rx Instructions .Route 09/11/22 09/24/22 tablet,extended release 24 hr .COMPLEX BP Previous Rx's Medication Instructions Recorded atorvastatin 80 mg tablet 80 mg PO DAILY choleterol #90 tabs 09/14/22 hydrocodone 5 mg-acetaminophen 325 1 - 2 tab PO Q6H PRN Pain #21 tabs 09/28/22 mg tablet ondansetron HCl 4 mg tablet 4 mg PO DAILY #30 tabs 09/28/22 olanzapine 2.5 mg tablet 2.5 mg PO DAILY PRN agitation and 10/08/22 restlessness #14 tabs Allergies Allergy/AdvReac Type Severity Reaction Status Date / Time No Known Allergies Allergy Verified 09/24/22 08:46 [facility] Disclaimer: The information contained in this section may have been updated after the patient was seen, as this information can be updated by other users. Medical History AAA (abdominal aortic aneurysm) Agatston coronary artery calci
[2022-10-08 16:55] LABS: Chloride 104 mmol/L (98-107); Sodium 140 mmol/L (136-145)
[2022-10-08 16:58] LABS: Blood Urea Nitrogen 21 mg/dl (9-20); Calcium 9.5 mg/dl (8.4-10.2); Carbon Dioxide 24 mmol/L (22.0-30.0); Creatinine Clearance Estimated 64 mL/min (50-200); Estimated Glomerular Filt Rate 55 ml/min (>60); GFR (African American) 67 ML/MIN (>60); Glucose 111 mg/dl (74-100)
[2022-10-08 17:41] VITALS: BP 160/84; PULSE 61; RESP 14; TEMP 36.7; O2SAT 97
== END 2022-10-08 17:45 | disposition home or self-care (01) ==
PROVIDERS: Emergency Provider Emergency Medicine; PCP Family Medicine
DX: F03.911 Unspecified dementia, unspecified severity, with agitation (principal); R42 Dizziness and giddiness; I25.10 Atherosclerotic heart disease of native coronary artery without angina pectoris; I10 Essential (primary) hypertension; E78.5 Hyperlipidemia, unspecified; I73.9 Peripheral vascular disease, unspecified; Z86.79 Personal history of other diseases of the circulatory system; Z80.9 Family history of malignant neoplasm, unspecified; Z82.49 Family history of ischemic heart disease and other diseases of the circulatory system; Z83.3 Family history of diabetes mellitus; F12.90 Cannabis use, unspecified, uncomplicated
CPT/HCPCS: 80048; 85025; 93005; 96365; 96372; 99285; J3475

== ENCOUNTER 2023-01-04 15:52 | Emergency (ER) | payer MEDICARE, SELFPAY ==
[2023-01-04 16:10] VITALS: BP 126/86; PULSE 70; RESP 18; TEMP 36.8; O2SAT 98; BMI 26.5
--- NOTE | 2023-01-04 16:29 | EXP.UTC ---
Discharge Plan Disposition Patient Disposition: Home, Self-Care Condition: Good Prescriptions Prescriptions: New amoxicillin 500 mg capsule 500 mg PO BID 10 Days Qty: 20 0RF fluticasone propionate [Flonase Allergy Relief] 50 mcg/actuation spray,suspension 1 - 2 spray intranasal BID Qty: 16 0RF Rx Instructions: administer into each nostril daily No Action lamotrigine 25 mg tablet 25 mg PO BID olanzapine 2.5 mg tablet 5 mg PO DAILY PRN (Reason: agitation and restlessness) rivastigmine 9.5 mg/24 hour patch 24 hour 9.5 mg TRANSDERMA DAILY aspirin [Adult Aspirin Regimen] 81 mg tablet,delayed release (DR/EC) 81 mg PO DAILY Qty: 90 1RF clopidogrel 75 mg tablet See Rx Instructions .ROUTE .COMPLEX Qty: 90 2RF Rx Instructions: TAKE ONE TABLET BY MOUTH EVERY DAY hydrochlorothiazide 12.5 mg tablet See Rx Instructions .ROUTE .COMPLEX Qty: 90 2RF Rx Instructions: TAKE ONE TABLET BY MOUTH EACH MORNING memantine 28 mg capsule,sprinkle,ER 24hr 28 mg PO DAILY Qty: 90 2RF metoprolol succinate 25 mg tablet extended release 24 hr See Rx Instructions .ROUTE .COMPLEX Qty: 90 2RF Rx Instructions: TAKE ONE TABLET BY MOUTH EVERY DAY FOR HIGH BLOOD PRESSURE multivitamin [One-A-Day Essential] Tablet 1 tab PO DAILY Qty: 90 2RF atorvastatin 80 mg tablet 80 mg PO DAILY Qty: 90 3RF Referrals Follow up/Referrals: Vipul Cameron APRN [Primary Care Provider] - See instructions Activity Restrictions/Add. Instructions Additional Instructions/Restrictions: *Monitor Temp, Over the counter Motrin or Tylenol as directed/as needed Tylenol every 4 hours and Motrin every 6 hours (as long as your family doctor has told you that you can take it) for fever or pain. and straight to ER if unable to lower temp less than 101.0 after medication given *Warm salt water gargles may help to soothe the throat *Throat Lozenges? *Warm fluids like tea with honey may help to soothe the throat? *Sleep elevated *Humidifier/Vaporizer *Flonase 2 sprays in each nostril daily but be aware that it may take 2-3 days before you notice improvement Follow up IMMEDIATELY for new or worsening symptoms or no Noticeable improvement over the next 48-72 hours. 911 for difficulty breathing or swallowing Clinical Impressions Clinical Impression: Strep throat Instructions Patient Instructions: DI for Strep Throat, DI for Ear Pain-Adult Discharge ED Provider: Loretta Martines [facility] HPI General Stated complaint: Headache,sore throat, right earache Mode of Arrival: Ambulatory Source of Information: Patient Limitations: No Limitations Time Seen by Provider: 01/04/23 16:29 Description of Symptoms (Recalled from Triage Doc. by RN): PATIENT C/O RIGHT EAR PAIN, HEADACHE, AND SORE THROAT X 2 DAYS HEENT Symptoms (Recalled from RN notes): Yes Resp Symptoms (Recalled from RN notes): No Skin Symptoms (Recalled from RN notes): No MS Symptoms (Recalled from RN notes): No Functional Status (Recalled from RN notes): WNL History of Present Illness Provider Complaint: Patient family states that patient has been complaining of sorethroat, pain in his right ear and headache for the last couple of days that has continued to get worse States that patient has dementia and doesnt complain much so today when he was complaining his ear was hurting worse so she brought him in Related Data Home Medications Medication Instructions Recorded Confirmed rivastigmine 9.5 mg/24 hour 9.5 mg transdermal DAILY * 09/15/21 12/23/22 transdermal patch olanzapine 2.5 mg tablet 5 mg PO DAILY PRN agitation and 10/20/22 12/23/22 restlessness lamotrigine 25 mg tablet 25 mg PO BID 12/18/22 12/23/22 Previous Rx's Medication Instructions Recorded atorvastatin 80 mg tablet 80 mg PO DAILY choleterol #90 tabs 09/14/22 aspirin 81 mg tablet,delayed 81 mg PO DAILY heart health #90 10/17/22 release (
[2023-01-04 16:42] VITALS: BP 126/86; PULSE 70; RESP 18; TEMP 36.8; O2SAT 98
[2023-01-04 16:48] LABS: UTC Strep Screen (Rapid) Positive (Negative)
== END 2023-01-04 16:45 | disposition home or self-care (01) ==
PROVIDERS: Emergency Provider Nurse Practitioner; PCP Nurse Practitioner Family
DX: J02.0 Streptococcal pharyngitis (principal); H92.01 Otalgia, right ear; R51.9 Headache, unspecified; F03.90 Unspecified dementia, unspecified severity, without behavioral disturbance, psychotic disturbance, mood disturbance, and anxiety; I10 Essential (primary) hypertension; E78.5 Hyperlipidemia, unspecified
CPT/HCPCS: 87880; 99212; 99214; G0463

== ENCOUNTER 2023-03-09 09:41 | Emergency (ER) | payer MEDICARE, SELFPAY ==
[2023-03-09 09:41] VITALS: BP 120/88; PULSE 91; RESP 16; TEMP 36.6; O2SAT 100; BMI 30.4
--- NOTE | 2023-03-09 09:48 | ECG_ITS ---
APPROVED REPORT Exam: Resting ECG HR:100 bpm ECG Measurements Heart Rate 100 AXES HI 175 P 68 QRSd 81 QRS 50 QT 328 T 59 QTc 385 [address] ELEVATION, But unchanged from prior UNCONFIRMED REPORT Electronically signed by : Quoc Castillo MD 03/09/2023 20:04:51
[2023-03-09 09:49] VITALS: PULSE 99; O2SAT 100
--- NOTE | 2023-03-09 09:50 | PC.NURSE ---
pt insisted on walking around before getting his blood drawn at this time. pt is anxious, restless and stated i feel like im in a hurry like i might explode. this nurse and the patient successfully walked around the nurses station without difficulty. pt rpeorts the walking helps him relax.
--- NOTE | 2023-03-09 09:51 | PC.NURSE ---
WAQAS POSADA at for pt hermesal
[2023-03-09 09:52] VITALS: BMI 30.3
--- NOTE | 2023-03-09 09:55 | XR_ITS ---
FINAL REPORT CLINICAL HISTORY: altered mental status COMPARISON: None FINDINGS: SINGLE VIEW CHEST The heart size is normal. The mediastinum is within normal limits. There is mild bronchial wall thickening that may represent bronchitis. There is no evidence of pneumothorax. The bony thorax is intact. IMPRESSION: Mild bronchial wall thickening that may represent bronchitis. Reviewed, Interpreted and Dictated by Dewey Siegel III, MD Transcribed by Celeste Traylor Authenticated and [facility]
--- NOTE | 2023-03-09 09:57 | CT_ITS ---
FINAL REPORT CLINICAL HISTORY: altered mental status FINDINGS: Axial images of the head were obtained without contrast. Coronal reformatted images were also obtained. This study was performed with techniques to keep radiation doses as low as reasonably achievable (ALARA). Individualized dose reduction techniques using automated exposure control or adjustment of mA and/or kV according to the patient''s size were employed. There is generalized age appropriate atrophy. There is no evidence of intracranial hemorrhage or mass. The ventricular size is within normal limits. There is no evidence of shift of the midline structures. No skull abnormality is seen on the bone window images. Mucosal thickening of multiple sinuses is present. IMPRESSION: No acute intracranial abnormality. Reviewed, Interpreted and Dictated by Dewey Siegel III, MD Transcribed by Celeste Traylor Authenticated and . [facility]
--- NOTE | 2023-03-09 09:59 | HMH.EDGENADL ---
Discharge Plan Disposition Patient Disposition: Home, Self-Care Prescriptions Prescriptions: New albuterol sulfate [ProAir HFA] 90 mcg/actuation HFA aerosol inhaler 2 inh inhalation QID PRN (Reason: shortness of breath or wheezing) Qty: 6.7 0RF prednisone 50 mg tablet 50 mg PO DAILY 5 Days Qty: 5 0RF No Action lamotrigine 25 mg tablet 25 mg PO BID olanzapine 2.5 mg tablet 5 mg PO DAILY PRN (Reason: agitation and restlessness) rivastigmine 9.5 mg/24 hour patch 24 hour 9.5 mg TRANSDERMA DAILY aspirin [Adult Aspirin Regimen] 81 mg tablet,delayed release (DR/EC) 81 mg PO DAILY Qty: 90 1RF clopidogrel 75 mg tablet See Rx Instructions .ROUTE .COMPLEX Qty: 90 2RF Rx Instructions: TAKE ONE TABLET BY MOUTH EVERY DAY hydrochlorothiazide 12.5 mg tablet See Rx Instructions .ROUTE .COMPLEX Qty: 90 2RF Rx Instructions: TAKE ONE TABLET BY MOUTH EACH MORNING memantine 28 mg capsule,sprinkle,ER 24hr 28 mg PO DAILY Qty: 90 2RF metoprolol succinate 25 mg tablet extended release 24 hr See Rx Instructions .ROUTE .COMPLEX Qty: 90 2RF Rx Instructions: TAKE ONE TABLET BY MOUTH EVERY DAY FOR HIGH BLOOD PRESSURE multivitamin [One-A-Day Essential] Tablet 1 tab PO DAILY Qty: 90 2RF atorvastatin 80 mg tablet 80 mg PO DAILY Qty: 90 3RF amoxicillin 500 mg capsule 500 mg PO BID 10 Days Qty: 20 0RF fluticasone propionate [Flonase Allergy Relief] 50 mcg/actuation spray,suspension 1 - 2 spray intranasal BID Qty: 16 0RF Rx Instructions: administer into each nostril daily Referrals Follow up/Referrals: Vipul Cameron APRN [Primary Care Provider] - See instructions Clinical Impressions Clinical Impression: Acute bronchitis, Anxiety Instructions Patient Instructions: DI for Acute Bronchitis, DI for Anxiety -- Adult, DI for Altered Mental Status Discharge ED Provider: Doc Levy General Adult HPI General Chief complaint: Altered Mental Status Stated complaint: SOA Possible anxiety attack Time Seen by Provider: 03/09/23 10:00 History of Present Illness HPI narrative: This is a 68-year-old male with a history of coronary artery disease carotid artery disease dementia who is brought in by the because of 2 days of shortness of breath. Upon arrival the emergency room patient is hyperventilating. Patient denies any chest pain pressure heaviness any cough hemoptysis any orthopnea or pedal edema any fevers or chills. Patient appears highly anxious. Related Data Home Medications Medication Instructions Recorded Confirmed rivastigmine 9.5 mg/24 hour 9.5 mg transdermal DAILY * 09/15/21 01/08/23 transdermal patch olanzapine 2.5 mg tablet 5 mg PO DAILY PRN agitation and 10/20/22 01/08/23 restlessness lamotrigine 25 mg tablet 25 mg PO BID 12/18/22 01/08/23 Previous Rx's Medication Instructions Recorded atorvastatin 80 mg tablet 80 mg PO DAILY choleterol #90 tabs 09/14/22 aspirin 81 mg tablet,delayed 81 mg PO DAILY heart health #90 10/17/22 release (Adult Aspirin Regimen) tabs clopidogrel 75 mg tablet See Rx Instructions .Route 10/17/22 .COMPLEX Blood thinner #90 tabs hydrochlorothiazide 12.5 mg tablet See Rx Instructions .Route 10/17/22 .COMPLEX bp #90 tabs memantine 28 mg capsule 28 mg PO DAILY alzheimers #90 ea 10/17/22 sprinkle,extended release 24hr metoprolol succinate 25 mg See Rx Instructions .Route 10/17/22 tablet,extended release 24 hr .COMPLEX BP #90 tabs multivitamin (One-A-Day Essential 1 tab PO DAILY Supplement #90 tabs 10/17/22 tablet) amoxicillin 500 mg capsule 500 mg PO BID 10 days #20 caps 01/04/23 fluticasone propionate 50 1 - 2 spray intranasal BID #16 01/04/23 mcg/actuation nasal grams spray,suspension (Flonase Allergy Relief) albuterol sulfate 90 mcg/actuation 2 inh inhalation QID PRN shortness 03/09/23 aerosol inhaler (ProAir HFA) of breath or wheezing #6.7 grams prednisone 50 mg tablet
--- NOTE | 2023-03-09 10:05 | PC.NURSE ---
pt to CT
[2023-03-09 10:14] LABS: Basophils # 0.1 K/mm3 (0-0.2); Basophils % 0.7 % (0.1-2.0); Eosinophils # 0.3 K/mm3 (0.0-0.4); Eosinophils % 3.3 % (0.1-12.0); Hematocrit 42.4 % (42.0-52.0); Hemoglobin 13.2 g/dL (14.1-18.0); Lymphocytes # 2.1 K/mm3 (0.7-4.5); Lymphocytes % 24.1 % (10-50); Mean Corpuscular HGB Conc 31.1 g/dL (31.8-35.4); Mean Corpuscular Hemoglobin 24.6 pg (27.0-31.2); Mean Corpuscular Volume 79.2 fl (80-94); Monocytes # 0.4 K/mm3 (0.1-1.0); Neutrophils # 5.8 K/mm3 (1.8-7.8); Neutrophils % 66.9 % (37.0-80.0); Platelet Count 413 K/mm3 (142-424); Red Blood Count 5.35 M/mm3 (4.60-6.20); Red Cell Distribution Width 16.2 % (11.5-17.5); White Blood Count 8.7 K/mm3 (4.8-10.8)
[2023-03-09 10:19] LABS: Chloride 102 mmol/L (98-107)
[2023-03-09 10:20] LABS: Potassium 3.4 mmoL/L (3.5-5.1); Sodium 139 mmol/L (136-145)
[2023-03-09 10:22] LABS: Alanine Aminotransferase 40 U/L (12-78); Aspartate Amino Transferase 64 U/L (17-59); Blood Urea Nitrogen 16 mg/dl (9-20); Creatinine Clearance Estimated 65 mL/min (50-200); Estimated Glomerular Filt Rate 43 ml/min (>60); GFR (African American) 52 ML/MIN (>60)
[2023-03-09 10:23] LABS: Albumin/Globulin Ratio 1.3 (1.1-1.8); Alkaline Phosphatase 159 U/L (38-126); Anion Gap 18.4 mEq/L (5-15); Bilirubin,Total 1.2 mg/dl (0.2-1.3); Calcium 10.1 mg/dl (8.4-10.2); Carbon Dioxide 22 mmol/L (22.0-30.0); Globulin 3.8 g/dL (1.3-3.2); Glucose 100 mg/dl (74-100); Total Protein,Serum 8.8 g/dl (6.3-8.2)
[2023-03-09 10:41] LABS: Lactic Acid 1.9 mmol/L (0.7-2.1)
[2023-03-09 10:42] LABS: Troponin I < 0.01 ng/ml (0.00-0.034)
--- NOTE | 2023-03-09 10:44 | PC.NURSE ---
rounded on patient; pt reports no needs at this time, family at BS. Call burgos within reach
[2023-03-09 10:47] LABS: Ethyl Alcohol < 10 mg/dl (0-10)
--- NOTE | 2023-03-09 11:12 | ECG_ITS ---
APPROVED REPORT Exam: Resting ECG HR:72 bpm ECG Measurements Heart Rate [address] 170 P 23 QRSd 97 QRS 28 QT 399 T -1 QTc 423 Conclusion SINUS RHYTHM NORMAL ECG UNCONFIRMED REPORT Electronically signed by : Quoc Castillo MD 03/09/2023 20:02:26
[2023-03-09 11:16] LABS: Thyroid Stimulating Hormone 0.82 uIU/mL (0.465-4.68)
[2023-03-09 11:55] LABS: Microscopic, Urine URINE MICROSCOPIC (MICROSCOPIC)
[2023-03-09 12:00] LABS: Appearance,Urine CLEAR (Clear); Bilirubin,Urine Negative (Negative); Blood, Urine Negative (Negative); Color,Urine YELLOW (Yellow); Glucose,Urine (UA) Negative (Negative); Ketones,Urine Negative (Negative); Leukocyte Esterase,Urine Negative (Negative); Nitrate,Urine Negative (Negative); Protein,Urine Negative (Negative); Specific Gravity, Urine 1.015 (1.005-1.030)
[2023-03-09 12:13] LABS: Barbiturates Screen,Urine Negative ng/ml (<200); Benzodiazepines Screen,Urine Negative ng/ml (<200)
[2023-03-09 12:14] LABS: Amphetamine/Metha Screen,Urine Negative ng/ml (<1000)
[2023-03-09 12:15] LABS: Cannabinoid Screen,Urine Positive ng/ml (<50); Cocaine Screen,Urine Negative ng/ml (<300)
[2023-03-09 12:16] LABS: Methadone Screen,Urine Negative ng/ml (<300)
[2023-03-09 12:17] LABS: Opiate Screen,Urine Negative ng/ml (<300); Phencyclidine Screen,Urine Negative ng/ml (<25)
[2023-03-09 12:25] LABS: Amorphous Sediment,Urine Trace /lpf; Bacteria,Urine Trace /lpf; RBC,Urine Occasional #/hpf (0-3); Squamous Epithelial Cell,Urine Occasional #/hpf (0-5)
[2023-03-09 12:26] VITALS: BP 121/83; PULSE 76; RESP 16; TEMP 36.7
[2023-03-09 12:26] LABS: Hyaline Casts,Urine Occasional #/lpf (0); Mucus,Urine Trace /lpf
== END 2023-03-09 12:27 | disposition home or self-care (01) ==
PROVIDERS: Emergency Provider Emergency Medicine; PCP Nurse Practitioner Family
DX: J20.9 Acute bronchitis, unspecified (principal); G30.9 Alzheimer's disease, unspecified; I25.118 Atherosclerotic heart disease of native coronary artery with other forms of angina pectoris; I71.40 Abdominal aortic aneurysm, without rupture, unspecified; F17.200 Nicotine dependence, unspecified, uncomplicated
CPT/HCPCS: 70450; 71045; 80053; 80305; 81001; 83605; 84443; 84484; 85025; 93005; 96374; 99285

== ENCOUNTER 2023-03-24 15:19 | Emergency (ER) | payer MEDICARE, SELFPAY ==
[2023-03-24 15:21] VITALS: BP 145/95; PULSE 71; RESP 18; TEMP 37; O2SAT 97; BMI 25.9
--- NOTE | 2023-03-24 16:40 | HMH.EDGENADL ---
Discharge Plan Disposition Patient Disposition: Home, Self-Care Prescriptions Prescriptions: New lorazepam [Ativan] 1 mg tablet 1 mg PO Q8H PRN (Reason: anxiety) Qty: 9 0RF No Action lamotrigine 25 mg tablet 25 mg PO BID olanzapine 2.5 mg tablet 5 mg PO DAILY PRN (Reason: agitation and restlessness) rivastigmine 9.5 mg/24 hour patch 24 hour 9.5 mg TRANSDERMA DAILY aspirin [Adult Aspirin Regimen] 81 mg tablet,delayed release (DR/EC) 81 mg PO DAILY Qty: 90 1RF clopidogrel 75 mg tablet See Rx Instructions .ROUTE .COMPLEX Qty: 90 2RF Rx Instructions: TAKE ONE TABLET BY MOUTH EVERY DAY hydrochlorothiazide 12.5 mg tablet See Rx Instructions .ROUTE .COMPLEX Qty: 90 2RF Rx Instructions: TAKE ONE TABLET BY MOUTH EACH MORNING memantine 28 mg capsule,sprinkle,ER 24hr 28 mg PO DAILY Qty: 90 2RF metoprolol succinate 25 mg tablet extended release 24 hr See Rx Instructions .ROUTE .COMPLEX Qty: 90 2RF Rx Instructions: TAKE ONE TABLET BY MOUTH EVERY DAY FOR HIGH BLOOD PRESSURE multivitamin [One-A-Day Essential] Tablet 1 tab PO DAILY Qty: 90 2RF atorvastatin 80 mg tablet 80 mg PO DAILY Qty: 90 3RF amoxicillin 500 mg capsule 500 mg PO BID 10 Days Qty: 20 0RF fluticasone propionate [Flonase Allergy Relief] 50 mcg/actuation spray,suspension 1 - 2 spray intranasal BID Qty: 16 0RF Rx Instructions: administer into each nostril daily albuterol sulfate [ProAir HFA] 90 mcg/actuation HFA aerosol inhaler 2 inh inhalation QID PRN (Reason: shortness of breath or wheezing) Qty: 6.7 0RF prednisone 50 mg tablet 50 mg PO DAILY 5 Days Qty: 5 0RF Referrals Follow up/Referrals: Vipul Cameron APRN [Primary Care Provider] - See instructions Clinical Impressions Clinical Impression: Panic attack as reaction to stress Discharge ED Provider: Fortino German General Adult HPI General Chief complaint: Anxiety Stated complaint: anxiety Time Seen by Provider: 03/24/23 16:31 Mode of Arrival: Ambulatory Source of Information: Patient Limitations: No Limitations Description of Symptoms (Recalled from ER Triage Doc. 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 Patient's stated patient's Lamotrigine was increased from 25mg to 50mg BID. Hx. of dementia and multiple episodes similar in the past History of Present Illness HPI narrative: Patient is a 68-year-old male with a history of anxiety and panic attacks and Alzheimer's brought in by his sister today with another similar episode. She states she has been dealing with this for 5 years with him she is his power of civil attorney and states this has been extensively worked up in the past and that she is sure that this is a panic attack. He was getting his toenails cut earlier today and started to develop an episode was having panic and anxiety. Once he got to the emergency department he started to calm down and is now back to baseline without any complaints. She has follow-up with doctors at [facility] on the of next month. But has no abortive medications when these types of episodes happen in the meantime. Related Data Home Medications Medication Instructions Recorded Confirmed rivastigmine 9.5 mg/24 hour 9.5 mg transdermal DAILY * 09/15/21 01/08/23 transdermal patch olanzapine 2.5 mg tablet 5 mg PO DAILY PRN agitation and 10/20/22 01/08/23 restlessness lamotrigine 25 mg tablet 25 mg PO BID 12/18/22 01/08/23 Previous Rx's Medication Instructions Recorded atorvastatin 80 mg tablet 80 mg PO DAILY choleterol #90 tabs 09/14/22 aspirin 81 mg tablet,delayed 81 mg PO DAILY heart health #90 10/17/22 release (Adult Aspirin Regimen) tabs clopidogrel 75 mg tablet See Rx Instructions .Route 10/17/22 .COMPLEX Blood thinner #90 tabs hydrochlorothiazide 12.5 mg tablet See Rx Instructions .Route 10/17/22 .COMPLEX bp
[2023-03-24 16:43] VITALS: BP 145/95; PULSE 71; RESP 18; TEMP 37; O2SAT 97
== END 2023-03-24 16:46 | disposition home or self-care (01) ==
PROVIDERS: Emergency Provider Student in an Organized Health Care Education/Training Program; PCP Nurse Practitioner Family
DX: F41.0 Panic disorder [episodic paroxysmal anxiety] (principal); F43.0 Acute stress reaction; F17.210 Nicotine dependence, cigarettes, uncomplicated; G30.9 Alzheimer's disease, unspecified; F02.80 Dementia in other diseases classified elsewhere, unspecified severity, without behavioral disturbance, psychotic disturbance, mood disturbance, and anxiety; I25.10 Atherosclerotic heart disease of native coronary artery without angina pectoris
CPT/HCPCS: 99283

== ENCOUNTER 2023-04-07 16:07 | Emergency (ER) | payer MEDICARE, SELFPAY ==
[2023-04-07 16:09] VITALS: BP 143/95; PULSE 74; RESP 20; TEMP 36.7; O2SAT 100; BMI 25.9
--- NOTE | 2023-04-07 16:14 | ECG_ITS ---
APPROVED REPORT Exam: Resting ECG HR:70 bpm ECG Measurements Heart Rate 70 AXES MS 167 P 50 QRSd 90 QRS 57 QT 374 T 29 QTc 395 Conclusion SINUS RHYTHM NORMAL ECG UNCONFIRMED REPORT Electronically signed by : Quoc Castillo MD 04/08/2023 21:35:56
--- NOTE | 2023-04-07 17:03 | HMH.EDGENADL ---
Discharge Plan Disposition Patient Disposition: Home, Self-Care Condition: Good Chief Complaint: Anxiety Prescriptions Prescriptions: New hydroxyzine HCl 50 mg tablet 50 mg PO BID PRN (Reason: anxiety) Qty: 14 0RF No Action lamotrigine 25 mg tablet 50 mg PO BID rivastigmine 9.5 mg/24 hour patch 24 hour 9.5 mg TRANSDERMA DAILY memantine 28 mg capsule,sprinkle,ER 24hr 28 mg PO DAILY Qty: 90 2RF multivitamin [One-A-Day Essential] Tablet 1 tab PO DAILY Qty: 90 2RF atorvastatin 80 mg tablet 80 mg PO DAILY Qty: 90 3RF clopidogrel 75 mg tablet 75 mg PO DAILY lorazepam [Ativan] 1 mg tablet 1 mg PO Q8H PRN (Reason: Anxiety) hydrochlorothiazide 12.5 mg tablet 12.5 mg PO DAILY metoprolol tartrate 25 mg Tablet 25 mg PO DAILY Referrals Follow up/Referrals: Vipul Cameron APRN [Primary Care Provider] - See instructions Activity Restrictions/Add. Instructions Additional Instructions/Restrictions: Home medications as directed. Atarax as needed. Maintain appointment on Wednesday. Return to ER for worsening Clinical Impressions Clinical Impression: Anxiety Discharge ED Provider: Chin Mayen General Adult HPI General Chief complaint: Anxiety Stated complaint: out of meds, poss panic attacks Time Seen by Provider: 04/07/23 16:11 Mode of Arrival: Ambulatory Source of Information: Patient and Relative Limitations: Altered Mental Status Description of Symptoms (Recalled from ER Triage Doc. 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 Patient suffers from anxiety and alzheimers disease which both exacerbate eachother. Patient is oriented to person most of the time. Sister reports he was given 1mg Lorazepam #8 tab to be given PRN. Sister states he is out of these medications. He is scheduled to see his PCP tomorrow. Patient adds that he is hurting in his chest. History of Present Illness HPI narrative: 68yo M presents to the ER with his sister secondary to severe anxiety. Patient has a history of severe anxiety and Alzheimer's. Patient was seen at the end of February and provided 9 Ativan 1 mg tablets and instructed to take half at a time. Patient is now out of that medication. Supposed to see his mental health on Wednesday. Taking all home medication as directed. No recent illness, fever. Related Data Home Medications Medication Instructions Recorded Confirmed rivastigmine 9.5 mg/24 hour 9.5 mg transdermal DAILY Alzheimers 09/15/21 04/07/23 transdermal patch lamotrigine 25 mg tablet 50 mg PO BID Seizure 12/18/22 04/07/23 clopidogrel 75 mg tablet 75 mg PO DAILY Anti-platelet 04/07/23 04/07/23 hydrochlorothiazide 12.5 mg tablet 12.5 mg PO DAILY Fluid 04/07/23 04/07/23 lorazepam 1 mg tablet (Ativan) 1 mg PO Q8H PRN Anxiety 04/07/23 04/07/23 metoprolol tartrate 25 mg tablet 25 mg PO DAILY High Blood Pressure 04/07/23 04/07/23 Previous Rx's Medication Instructions Recorded atorvastatin 80 mg tablet 80 mg PO DAILY choleterol #90 tabs 09/14/22 memantine 28 mg capsule 28 mg PO DAILY alzheimers #90 ea 10/17/22 sprinkle,extended release 24hr multivitamin (One-A-Day Essential 1 tab PO DAILY Supplement #90 tabs 10/17/22 tablet) hydroxyzine HCl 50 mg tablet 50 mg PO BID PRN anxiety #14 tabs 04/07/23 Allergies Allergy/AdvReac Type Severity Reaction Status Date / Time No Known Allergies Allergy Verified 03/24/23 15:03 [facility] Disclaimer: The information contained in this section may have been updated after the patient was seen, as this information can be updated by other users. Medical History AAA (abdominal aortic aneurysm) Agatston coronary artery calcium score greater than 400 Alzheimer's dementia without behavioral disturbance Atypical angina Bilateral carotid bruits CAD (coronary artery disease) Enc
[2023-04-07 17:29] VITALS: BP 163/71; PULSE 74; RESP 17; TEMP 36.8; O2SAT 98
== END 2023-04-07 17:29 | disposition home or self-care (01) ==
PROVIDERS: Emergency Provider Family Medicine; PCP Nurse Practitioner Family
DX: R41.9 Unspecified symptoms and signs involving cognitive functions and awareness (principal); I71.40 Abdominal aortic aneurysm, without rupture, unspecified; F03.90 Unspecified dementia, unspecified severity, without behavioral disturbance, psychotic disturbance, mood disturbance, and anxiety; I25.119 Atherosclerotic heart disease of native coronary artery with unspecified angina pectoris
CPT/HCPCS: 93005; 99284

== ENCOUNTER → 2023-04-23 14:00 | Outpatient (CLI) | payer MEDICARE, SELFPAY ==
--- NOTE | 2023-04-23 | CA_ITS ---
FINAL REPORT CLINICAL HISTORY: .[place] KNOWN RIGHT ICA OCCLUSION COMPARISON: None FINDINGS: RIGHT CAROTID: CCA PSV -71 cm/sec ICA PSV -known occlusion ICA/CCA PSV ratio unobtainable Comments: Occluded right ICA. LEFTCAROTID: CCA PSV -71. cm/sec ICA PSV -100. cm/sec ICA/CCA PSV ratio -1.5. Comments: Mild plaque disease is noted. Antegrade flow is seen within the vertebral arteries. IMPRESSION: Chronic right ICA occlusion. Carotid stenosis classified less than 50% on the left. Reviewed, Interpreted and Dictated by Severo Johnson MD Transcribed by Meena Lloyd Authenticated and [facility]
== END ==
PROVIDERS: PCP Nurse Practitioner Family; Visit Provider Psychiatry & Neurology Neurology
DX: I65.23 Occlusion and stenosis of bilateral carotid arteries (principal)
CPT/HCPCS: 93880

== ENCOUNTER → 2023-06-23 16:05 | Outpatient (CLI) | payer MEDICARE, SELFPAY ==
[2023-06-23 16:37] LABS: Basophils # 0.1 K/mm3 (0-0.2); Basophils % 0.7 % (0.1-2.0); Eosinophils # 0.3 K/mm3 (0.0-0.4); Eosinophils % 2.7 % (0.1-12.0); Hematocrit 42.4 % (42.0-52.0); Hemoglobin 13.7 g/dL (14.1-18.0); Lymphocytes # 2.4 K/mm3 (0.7-4.5); Lymphocytes % 20.3 % (10-50); Mean Corpuscular HGB Conc 32.2 g/dL (31.8-35.4); Mean Corpuscular Hemoglobin 25.3 pg (27.0-31.2); Mean Corpuscular Volume 78.7 fl (80-94); Mean Platelet Volume 7.5 fl (7.4-10.4); Monocytes # 0.5 K/mm3 (0.1-1.0); Monocytes % 4.6 % (1.7-9.3); Neutrophils # 8.3 K/mm3 (1.8-7.8); Neutrophils % 71.7 % (37.0-80.0); Platelet Count 372 K/mm3 (142-424); Red Blood Count 5.39 M/mm3 (4.60-6.20); Red Cell Distribution Width 15.9 % (11.5-17.5); White Blood Count 11.5 K/mm3 (4.8-10.8)
[2023-06-23 17:05] LABS: Alanine Aminotransferase 22 U/L (12-78); Albumin Level 4.8 g/dl (3.5-5.0); Alkaline Phosphatase 152 U/L (38-126); Anion Gap 15.1 mEq/L (5-15); Aspartate Amino Transferase 35 U/L (17-59); Bilirubin,Direct 0.1 mg/dl (0.0-0.4); Bilirubin,Indirect 0.5 mg/dL (0.0-0.9); Bilirubin,Total 0.6 mg/dl (0.2-1.3); Bilirubin,Unconjugated 0.5 mg/dL (0.0-1.1); Blood Urea Nitrogen 18 mg/dl (9-20); Carbon Dioxide 25 mmol/L (22.0-30.0); Chloride 101 mmol/L (98-107); Chol/HDL Ratio 3.4 (1-3.5); Cholesterol 141 mg/dl (140-200); Estimated Glomerular Filt Rate 47 ml/min (>60); GFR (African American) 56 ML/MIN (>60); Glucose 112 mg/dl (74-100); HDL Cholesterol 41 mg/dl (40-60); Magnesium 1.9 mg/dl (1.6-2.3); Potassium 4.1 mmoL/L (3.5-5.1); Sodium 137 mmol/L (136-145); Total Protein,Serum 8.2 g/dl (6.3-8.2); Triglycerides 115 mg/dl (30-150); VLDL Cholesterol 23 mg/dL (0-40)
[2023-06-23 17:22] LABS: Free T4 (Free Thyroxine) 0.83 ng/dl (0.78-2.19)
[2023-06-23 18:26] LABS: Thyroid Stimulating Hormone 1.47 uIU/mL (0.465-4.68)
== END ==
PROVIDERS: PCP Nurse Practitioner Family; Visit Provider Physician Assistant
DX: E78.5 Hyperlipidemia, unspecified (principal); I10 Essential (primary) hypertension; I25.10 Atherosclerotic heart disease of native coronary artery without angina pectoris; I65.29 Occlusion and stenosis of unspecified carotid artery; I73.9 Peripheral vascular disease, unspecified; R09.89 Other specified symptoms and signs involving the circulatory and respiratory systems; R93.1 Abnormal findings on diagnostic imaging of heart and coronary circulation; I71.40 Abdominal aortic aneurysm, without rupture, unspecified
CPT/HCPCS: 36415; 80048; 80061; 80076; 83735; 84439; 84443; 85025

== ENCOUNTER 2023-10-28 13:47 | Emergency (ER) | payer MEDICARE, SELFPAY ==
--- NOTE | 2023-10-28 13:56 | XR_ITS ---
FINAL REPORT CLINICAL HISTORY: right hand injury and pain FINDINGS: RIGHT WRIST THREE VIEW FINDINGS: Three views show no evidence of an acute, displaced fracture or dislocation of the visualized bony architecture. The joint spaces appear normal. IMPRESSION: Unremarkable exam. Reviewed, Interpreted and Dictated by Severo Johnson MD Transcribed by Nina Bateman Authenticated and [facility]
--- NOTE | 2023-10-28 13:56 | XR_ITS ---
FINAL REPORT CLINICAL HISTORY: right hand injury and pain FINDINGS: RIGHT HAND Three views demonstrate no acute fracture or dislocation. There are moderate diffuse degenerative changes. There is no evidence of bony destruction. There is deformity of the fifth metacarpal consistent with old healed fracture. The visualized joint spaces are normally aligned. The soft tissues are unremarkable. IMPRESSION: Arthritic changes of distal distribution. No bony destruction or acute bony abnormality. Reviewed, Interpreted and Dictated by Severo Johnson MD Transcribed by Nina Bateman Authenticated and [facility]
[2023-10-28 14:30] VITALS: BP 126/78; PULSE 60; RESP 18; TEMP 37; O2SAT 97; BMI 25.6
--- NOTE | 2023-10-28 14:51 | ED_ITS ---
Discharge Plan Disposition Patient Disposition: Home, Self-Care Condition: Good Prescriptions Prescriptions: No Action aspirin 81 mg tablet 81 mg PO DAILY melatonin 10 mg capsule 10 mg PO HS PRN rivastigmine 9.5 mg/24 hour patch 24 hour 9.5 mg TRANSDERMA DAILY multivitamin [One-A-Day Essential] Tablet 1 tab PO DAILY Qty: 90 2RF escitalopram oxalate 10 mg tablet 10 mg PO clopidogrel 75 mg tablet See Rx Instructions .ROUTE .COMPLEX Qty: 90 4RF Dose Instruction: TAKE ONE TABLET BY MOUTH EVERY DAY Rx Instructions: TAKE ONE TABLET BY MOUTH EVERY DAY atorvastatin 80 mg tablet See Rx Instructions .ROUTE .COMPLEX Qty: 90 2RF Dose Instruction: TAKE 1 TABLET BY MOUTH ONCE DAILY FOR CHOLETEROL Rx Instructions: TAKE 1 TABLET BY MOUTH ONCE DAILY FOR CHOLETEROL memantine 28 mg capsule,sprinkle,ER 24hr See Rx Instructions .ROUTE .COMPLEX Qty: 90 1RF Dose Instruction: TAKE 1 CAPSULE BY MOUTH DAILY FOR ALZHEIMERS Rx Instructions: TAKE 1 CAPSULE BY MOUTH DAILY FOR ALZHEIMERS metoprolol succinate 25 mg tablet extended release 24 hr See Rx Instructions .ROUTE .COMPLEX Qty: 90 1RF Dose Instruction: TAKE ONE TABLET BY MOUTH EVERY DAY FOR HIGH BLOOD PRESSURE Rx Instructions: TAKE ONE TABLET BY MOUTH EVERY DAY FOR HIGH BLOOD PRESSURE hydrochlorothiazide 12.5 mg tablet 12.5 mg PO DAILY Qty: 90 1RF hydroxyzine HCl 50 mg tablet 50 mg PO BID PRN (Reason: anxiety) Qty: 14 0RF Referrals Follow up/Referrals: Vipul Cameron APRN [Primary Care Provider] - See instructions Activity Restrictions/Add. Instructions Additional Instructions/Restrictions: Rest the extremity, Elevate the extremity as tolerated while you are resting. Wear the elastic wrap loosely on the affected area for the next few days. Follow up with your regular doctor. GO TO THE ER FOR ANY WORSENING SYMPTOMS Clinical Impressions Clinical Impression: Hematoma of right hand Instructions Patient Instructions: DI for Hematoma (Bruise) Discharge ED Provider: Lex Neely [facility] General Stated complaint: right thumb bruised Time Seen by Provider: 10/28/23 14:51 History of Present Illness Provider Complaint: His daughter states that she first noticed an area of swelling yesterday on the back of the patient's right hand near the base of his thumb. Since then, she has noted bruising that has slowly got larger in area around the area of swelling. The patient states that the area is tender to touch and that it hurts some. They do not know on any injury, but he has a history of Alzheimer's disease and he is a very poor historian. Related Data Home Medications Medication Instructions Recorded Confirmed rivastigmine 9.5 mg/24 hour 9.5 mg transdermal DAILY Alzheimers 09/15/21 08/04/23 transdermal patch escitalopram oxalate 10 mg tablet 10 mg PO 04/21/23 08/04/23 aspirin 81 mg tablet 81 mg PO DAILY 06/23/23 08/04/23 melatonin 10 mg capsule 10 mg PO HS PRN 06/23/23 08/04/23 Previous Rx's Medication Instructions Recorded multivitamin (One-A-Day Essential 1 tab PO DAILY Supplement #90 tabs 10/17/22 tablet) hydroxyzine HCl 50 mg tablet 50 mg PO BID PRN anxiety #14 tabs 04/07/23 clopidogrel 75 mg tablet See Rx Instructions .Route 06/21/23 .COMPLEX #90 tabs atorvastatin 80 mg tablet See Rx Instructions .Route 09/22/23 .COMPLEX #90 tabs hydrochlorothiazide 12.5 mg tablet 12.5 mg PO DAILY Fluid #90 tabs 09/22/23 memantine 28 mg capsule See Rx Instructions .Route 09/22/23 sprinkle,extended release 24hr .COMPLEX #90 caps metoprolol succinate 25 mg See Rx Instructions .Route 09/22/23 tablet,extended release 24 hr .COMPLEX #90 tabs Allergies Allergy/AdvReac Type Severity Reaction Status Date / Time No Known Allergies Allergy Verified 10/28/23 15:07 [facility] Disclaimer: The information contained in this section may have been updated after the patient was seen, as this information can be updated by other users. Medical History AAA (abdominal aortic aneurysm) Agatston coronary artery calcium score greater than 400 Alzheimer's dementia without behavioral disturbance Atypical angina Bilateral carotid bruits CAD (coronary artery disease) Encounter for pre-operative cardiovascular clearance Family history of heart disease Left arm pain Patient new to facility Subclavian artery stenosis, left Surgical History History of hernia surgery History of surgery thrombectomy ble Hx of heart artery stent Family History Other Family history of cancer Family history of cardiac disorder Family history of diabetes mellitus Social History Smoking Status: Never smoker alcohol intake: never substance use type: marijuana current occupational status: retired and disabled Travel in the last 8 weeks: None household members: none housing: house current occupational exposures/hazards: No ROS Obtained: Yes All systems reviewed & no additional complaints except as documented Constitutional Constitutional: Denies chills and Denies fever(s) Eyes Eyes: Denies eye discharge ENT Ears, Nose, Mouth, and Throat: Denies dizziness, Denies otalgia and Denies sore throat Cardiovascular Cardiovascular: Denies chest pain Respiratory Respiratory: Denies shortness of breath, Denies chest congestion, Denies cough, Denies stridor and Denies wheezing Gastrointestinal Gastrointestingal: Denies nausea or vomiting Musculoskeletal Musculoskeletal: Reports as per HPI Integumentary/Breasts Skin/Breast: Reports as per HPI and Reports unusual bruising Neurologic Neurologic: Denies dizziness and Denies paresthesias Allergic/Immunologic Allergic/Immunologic: Denies wheezing Physical Exam General General appearance: alert and in no apparent distress Head Head exam: atraumatic, normocephalic and normal inspection Eye Eye exam: Present normal appearance, PERRL and EOMI ENT ENT exam: Present normal exam, normal oropharynx, mucous membranes moist, TM's normal bilaterally and normal external ear exam Neck Neck exam: Present normal inspection, full ROM and trachea midline; Absent meningismus or lymphadenopathy Chest Chest inspection: Present normal inspection and symmetric chest wall rise; Absent tenderness Respiratory Respiratory exam: Present normal lung sounds bilaterally; Absent respiratory distress Cardiovascular Cardiovascular exam: Present regular rate and normal rhythm; Absent JVD Abdominal Exam Abdominal exam: Present soft and normal bowel sounds; Absent distention, tenderness or guarding Extremities Exam Extremities exam: Present normal inspection, full ROM and normal capillary refill; Absent calf tenderness Expanded Upper Extremity Exam Right: Elbow exam: Present normal inspection and full ROM; Absent tenderness, pain w/ pronation/supination or tenderness over radial head Forearm/Wrist exam: Present normal inspection and full ROM; Absent tenderness, tenderness over anatomical snuff box or pain with axial thumb loading Hand exam: Present full ROM and ecchymosis; Absent tenderness, swelling, abrasion, laceration, skin avulsion, deformity, crepitus, dislocation, erythema, amputation, nail avulsion or subungual hematoma Neuromotor exam: Normal wrist extension Vascular exam: Normal capillary refill Back Exam Back exam: Present normal inspection; Absent tenderness Neurological Exam Neurological exam: Present alert and oriented X3 Psychiatric Psychiatric exam: Present normal affect and normal mood Skin Skin exam: Present other (on the top of his right hand there is a raised, bruised area. ) Lymphatic Lymphatic Findings: no adenopathy Medical Decision Making Medical Records Medical records reviewed: No I reviewed the patient's medical records. [place] Inquiry Pt receiving controlled substance: No Orders (Tests/Meds): ORDERS Category Date Time Status XR hand RT min 3V Stat Exams 10/28/23 13:56 Completed XR wrist RT min 3V Stat Exams 10/28/23 13:56 Completed Radiology Data #1: Image(s): Hand Image Reviewed: Yes I reviewed the patient's radiology image and Yes I have reviewed radiologist's interpretation Preliminary Findings: Normal/NAD and No Fracture Seen FINAL REPORT CLINICAL HISTORY: right hand injury and pain FINDINGS: RIGHT HAND Three views demonstrate no acute fracture or dislocation. There are moderate diffuse degenerative changes. There is no evidence of bony destruction. There is deformity of the fifth metacarpal consistent with old healed fracture. The visualized joint spaces are normally aligned. The soft tissues are unremarkable. IMPRESSION: Arthritic changes of distal distribution. No bony destruction or acute bony abnormality. Reviewed, Interpreted and Dictated by Severo Johnson MD Transcribed by Nina Bateman Authenticated and . [facility] Procedures Risk/Benefits of Procedure(s) Were Explained: Yes Orthopedic Splinting/Casting Injury #1: Side: right Upper Extremity Immobilizer: Vignesh wrap and applied by nurse/dr lassiter Post Cast/Splinting Neuro Status: intact and no change Post Cast/Splinting Vasc Status: intact and no change
[2023-10-28 15:43] VITALS: BP 126/78; PULSE 60; RESP 18; TEMP 37; O2SAT 97
== END 2023-10-28 15:43 | disposition home or self-care (01) ==
PROVIDERS: Emergency Provider Nurse Practitioner Family; PCP Nurse Practitioner Family
DX: S60.221A Contusion of right hand, initial encounter (principal); G30.9 Alzheimer's disease, unspecified; F02.80 Dementia in other diseases classified elsewhere, unspecified severity, without behavioral disturbance, psychotic disturbance, mood disturbance, and anxiety; I25.119 Atherosclerotic heart disease of native coronary artery with unspecified angina pectoris; I11.9 Hypertensive heart disease without heart failure; E78.5 Hyperlipidemia, unspecified; I65.29 Occlusion and stenosis of unspecified carotid artery; M79.641 Pain in right hand; X58.XXXA Exposure to other specified factors, initial encounter
CPT/HCPCS: 73110; 73130; 99212; 99214; G0463

== ENCOUNTER 2024-08-15 14:03 | Outpatient (CLI) | payer MEDICARE, SELFPAY ==
[2024-08-15 14:31] LABS: Basophils # 0.1 K/mm3 (0-0.2); Eosinophils # 0.6 K/mm3 (0.0-0.4); Eosinophils % 5.9 % (0.1-12.0); Hematocrit 32.7 % (42.0-52.0); Hemoglobin 10.9 g/dL (14.1-18.0); Lymphocytes # 2.2 K/mm3 (0.7-4.5); Lymphocytes % 23.6 % (10-50); Mean Corpuscular HGB Conc 33.4 g/dL (31.8-35.4); Mean Corpuscular Hemoglobin 26.6 pg (27.0-31.2); Mean Corpuscular Volume 79.7 fl (80-94); Mean Platelet Volume 7.3 fl (7.4-10.4); Monocytes # 0.5 K/mm3 (0.1-1.0); Monocytes % 5.8 % (1.7-9.3); Neutrophils % 63.8 % (37.0-80.0); Platelet Count 384 K/mm3 (142-424); Red Blood Count 4.11 M/mm3 (4.60-6.20); Red Cell Distribution Width 15.3 % (11.5-17.5); White Blood Count 9.3 K/mm3 (4.8-10.8)
[2024-08-15 14:59] LABS: Alanine Aminotransferase 15 U/L (12-78); Albumin Level 4.1 g/dl (3.5-5.0); Alkaline Phosphatase 123 U/L (38-126); Anion Gap 10.9 mEq/L (5-15); Aspartate Amino Transferase 30 U/L (17-59); Bilirubin,Direct 0.2 mg/dl (0.0-0.4); Bilirubin,Indirect 0.6 mg/dL (0.0-0.9); Bilirubin,Total 0.8 mg/dl (0.2-1.3); Bilirubin,Unconjugated 0.6 mg/dL (0.0-1.1); Blood Urea Nitrogen 10 mg/dl (9-20); Calcium 9.4 mg/dl (8.4-10.2); Carbon Dioxide 29 mmol/L (22.0-30.0); Chloride 102 mmol/L (98-107); Chol/HDL Ratio 2.5 (1-3.5); Cholesterol 109 mg/dl (140-200); Estimated Glomerular Filt Rate 66 ml/min (>60); GFR (African American) 80 ML/MIN (>60); Glucose 97 mg/dl (74-100); HDL Cholesterol 43 mg/dl (40-60); Magnesium 1.9 mg/dl (1.6-2.3); Potassium 3.9 mmoL/L (3.5-5.1); Sodium 138 mmol/L (136-145); Total Protein,Serum 6.7 g/dl (6.3-8.2); Triglycerides 81 mg/dl (30-150); VLDL Cholesterol 16 mg/dL (0-40)
[2024-08-15 15:10] LABS: Direct LDL Cholesterol 57.55 mg/dL (100-129)
[2024-08-15 15:15] LABS: Free T4 (Free Thyroxine) 0.85 ng/dl (0.78-2.19)
[2024-08-15 15:29] LABS: Thyroid Stimulating Hormone 0.61 uIU/mL (0.465-4.68)
== END 2024-08-15 23:59 | disposition home or self-care (01) ==
LOC: LAB 14:04
PROVIDERS: Physician Assistant; PCP Nurse Practitioner Family; Visit Provider Physician Assistant
DX: I65.23 Occlusion and stenosis of bilateral carotid arteries (principal); I73.9 Peripheral vascular disease, unspecified; R06.02 Shortness of breath; I10 Essential (primary) hypertension; E78.2 Mixed hyperlipidemia; I95.9 Hypotension, unspecified; I25.10 Atherosclerotic heart disease of native coronary artery without angina pectoris; E78.5 Hyperlipidemia, unspecified; I65.29 Occlusion and stenosis of unspecified carotid artery; I71.40 Abdominal aortic aneurysm, without rupture, unspecified
CPT/HCPCS: 36415; 80048; 80061; 80076; 83735; 84439; 84443; 85025

== ENCOUNTER 2024-08-23 07:49 | Outpatient (CLI) | payer MEDICARE, SELFPAY ==
--- NOTE | 2024-08-23 07:50 | US_ITS ---
FINAL REPORT CLINICAL HISTORY: AAA COMPARISON: 01/12/2022 FINDINGS: Sonographic images were obtained of the abdominal aorta. The abdominal aorta measures up to 4 cm in greatest dimensions which is increased from the prior exam where it measured 3.4 cm. The common iliac arteries are within normal limits. IMPRESSION: Abdominal aortic aneurysm measuring 4 cm which is slightly increased compared to the prior exam. CTA is recommended for further evaluation. Reviewed, Interpreted and Dictated by Diamond Shah MD Transcribed by Alexandra Torres Authenticated and [facility]
== END 2024-08-23 23:59 | disposition home or self-care (01) ==
LOC: RAD 07:50
PROVIDERS: PCP Nurse Practitioner Family; Visit Provider Physician Assistant
DX: I71.40 Abdominal aortic aneurysm, without rupture, unspecified (principal); I65.23 Occlusion and stenosis of bilateral carotid arteries; I73.9 Peripheral vascular disease, unspecified; R06.02 Shortness of breath; I10 Essential (primary) hypertension; E78.2 Mixed hyperlipidemia; I95.9 Hypotension, unspecified; I25.10 Atherosclerotic heart disease of native coronary artery without angina pectoris
CPT/HCPCS: 76705

== ENCOUNTER 2024-09-24 14:43 | Emergency (ER) | payer MEDICARE, SELFPAY ==
[2024-09-24 16:56] VITALS: BP 139/77; PULSE 61; RESP 18; TEMP 36.8; O2SAT 98; BMI 24.9
--- NOTE | 2024-09-24 17:04 | ED_ITS ---
Discharge Plan Disposition Patient Disposition: Home, Self-Care Condition: Good Prescriptions Prescriptions: New amoxicillin 875 mg tablet 875 mg PO Q12H Qty: 20 0RF methylprednisolone 4 mg Tablets,Dose Pack 4 mg PO DIRECTED 6 Days Qty: 21 0RF Rx Instructions: Take 1 pack as directed for 6 days No Action aspirin 81 mg tablet 81 mg PO DAILY melatonin 10 mg capsule 10 mg PO HS PRN rivastigmine 9.5 mg/24 hour patch 24 hour 9.5 mg TRANSDERMA DAILY multivitamin [One-A-Day Essential] Tablet 1 tab PO DAILY Qty: 90 2RF hydroxyzine HCl 50 mg tablet 50 mg PO BID PRN (Reason: anxiety) Qty: 14 0RF escitalopram oxalate 10 mg tablet See Rx Instructions .ROUTE .COMPLEX Qty: 90 0RF Dose Instruction: TAKE 1 TABLET BY MOUTH DAILY FOR MOOD Rx Instructions: TAKE 1 TABLET BY MOUTH DAILY FOR MOOD memantine 28 mg capsule,sprinkle,ER 24hr See Rx Instructions .ROUTE .COMPLEX Qty: 90 0RF Dose Instruction: TAKE 1 CAPSULE BY MOUTH DAILY FOR ALZHEIMERS Rx Instructions: TAKE 1 CAPSULE BY MOUTH DAILY FOR ALZHEIMERS metoprolol succinate 25 mg tablet extended release 24 hr See Rx Instructions .ROUTE .COMPLEX Qty: 90 0RF Dose Instruction: TAKE ONE TABLET BY MOUTH EVERY DAY FOR HIGH BLOOD PRESSURE Rx Instructions: TAKE ONE TABLET BY MOUTH EVERY DAY FOR HIGH BLOOD PRESSURE hydrochlorothiazide 12.5 mg tablet See Rx Instructions .ROUTE .COMPLEX Qty: 90 0RF Dose Instruction: TAKE 1 TABLET BY MOUTH ONCE DAILY FOR FLUID Rx Instructions: TAKE 1 TABLET BY MOUTH ONCE DAILY FOR FLUID atorvastatin 80 mg tablet 80 mg PO DAILY Qty: 90 3RF clopidogrel 75 mg tablet See Rx Instructions .ROUTE .COMPLEX Qty: 30 11RF Dose Instruction: TAKE ONE TABLET BY MOUTH EVERY DAY Rx Instructions: TAKE ONE TABLET BY MOUTH EVERY DAY Referrals Follow up/Referrals: Vipul Cameron APRN [Primary Care Provider] - See instructions Activity Restrictions/Add. Instructions Additional Instructions/Restrictions: Drink plenty of fluids. Take tylenol or ibuprofen for pain or fever. Take the medications as directed. Follow up with your regular doctor. GO TO THE ER FOR ANY WORSENING SYMPTOMS Don't start the oral steroids (medrol dose pack) until tomorrow since you had the shot here Clinical Impressions Clinical Impression: Otitis media, Sinusitis Instructions Patient Instructions: Sinusitis, DI for Sinusitis Print Language Print Language: Upper Sorbian Discharge ED Provider: Lex Neely [facility] HPI General Stated complaint: head, neck pain, right ear pain Mode of Arrival: Ambulatory Source of Information: Patient Time Seen by Provider: 09/24/24 17:04 Description of Symptoms (Recalled from Triage Doc. by RN): EAR AND NECK PAIN, CAN NOT HEAR HEENT Symptoms (Recalled from RN notes): Yes Resp Symptoms (Recalled from RN notes): No Skin Symptoms (Recalled from RN notes): No MS Symptoms (Recalled from RN notes): No Functional Status (Recalled from RN notes): WNL Related Data Home Medications ?Medication ?Instructions ?Recorded ?Confirmed rivastigmine 9.5 mg/24 hour 9.5 mg transdermal DAILY Alzheimers 09/15/21 08/15/24 transdermal patch aspirin 81 mg tablet 81 mg PO DAILY 06/23/23 08/15/24 melatonin 10 mg capsule 10 mg PO HS PRN 06/23/23 08/15/24 Previous Rx's ?Medication ?Instructions ?Recorded multivitamin (One-A-Day Essential 1 tab PO DAILY Supplement #90 tabs 10/17/22 tablet) hydroxyzine HCl 50 mg tablet 50 mg PO BID PRN anxiety #14 tabs 03/22/24 escitalopram oxalate 10 mg tablet See Rx Instructions .Route 07/18/24 .COMPLEX #90 tabs hydrochlorothiazide 12.5 mg tablet See Rx Instructions .Route 07/18/24 .COMPLEX #90 tabs memantine 28 mg capsule See Rx Instructions .Route 07/18/24 sprinkle,extended release 24hr .COMPLEX #90 caps metoprolol succinate 25 mg See Rx Instructions .Route 07/18/24 tablet,extended release 24 hr .COMPLEX #90 tabs atorvastatin 80 mg tablet 80 mg PO DAILY #90 tabs 09/18/24 clopidogrel 75 mg tablet See Rx Instructions .Route 09/18/24 .COMPLEX #30 tabs amoxicillin 875 mg tablet 875 mg PO Q12H #20 tabs 09/24/24 methylprednisolone 4 mg tablets in 4 mg PO DIRECTED 6 days #21 tabs 09/24/24 a dose pack Allergies Allergy/AdvReac Type Severity Reaction Status Date / Time No Known Allergies Allergy Verified 08/15/24 13:21 Worker's Comp Is this a Worker's Comp case?: No PFSH PFSH Disclaimer: The information contained in this section may have been updated after the patient was seen, as this information can be updated by other users. Medical History Colon cancer screening Patient new to facility Encounter for pre-operative cardiovascular clearance AAA (abdominal aortic aneurysm) Alzheimer's dementia without behavioral disturbance Bilateral carotid bruits CAD (coronary artery disease) [place] coronary artery calcium score greater than 400 Family history of heart disease Subclavian artery stenosis, left Left arm pain Atypical angina Surgical History History of hernia surgery Hx of heart artery stent History of surgery thrombectomy ble Family History Other Family history of cancer Family history of cardiac disorder Family history of diabetes mellitus Social History Smoking Status: Never smoker alcohol intake: never substance use type: marijuana current occupational status: retired and disabled Travel in the last 8 weeks: None household members: none housing: house current occupational exposures/hazards: No Have you lived/traveled outside [place] in past 30 days?: No Contact w/someone who lives/traveled outside [place] past 30 days?: No Exposure to someone with infectious disease in past 14 days?: No Do you have a fever (greater than 100.4 F or 38 C)?: No Have you tested positive for COVID-19: No Exposed to someone with COVID-19 in past 14 days?: No Do you have a sore throat?: No Do you have a cough?: No Do you have any weakness?: No Do you have any diarrhea?: No Are you experiencing any unusual bleeding?: No Do you have any muscle aches/pain?: No Do you have any abdominal pain?: Yes Are you experiencing loss of taste or smell?: No ROS Obtained: Yes All systems reviewed & no additional complaints except as do cumented Constitutional Constitutional: Denies chills, Reports fever(s) and Reports poor appetite Eyes Eyes: Denies eye discharge ENT Ears, Nose, Mouth, and Throat: Denies ear discharge, Reports otalgia, Denies hearing loss, Denies sinus pain and Reports sore throat Cardiovascular Cardiovascular: Denies chest pain and Denies dyspnea Respiratory Respiratory: Denies chest congestion, Reports cough and Denies dyspnea Gastrointestinal Gastrointestingal: Denies abdominal pain, diarrhea, nausea or vomiting Musculoskeletal Musculoskeletal: Denies arthralgias Integumentary/Breasts Skin/Breast: Denies rash Physical Exam General General appearance: alert and in no apparent distress Head Head exam: atraumatic, normocephalic and normal inspection Eye Eye exam: Present normal appearance; Absent PERRL or EOMI ENT ENT exam: Present mucous membranes moist and normal external ear exam Expanded ENT Exam TM/Canal exam: Bilateral TM: erythema, bulging and effusion Nose exam: Absent sinus tenderness Nasal speculum exam: Bilateral: normal Mouth exam: Present normal external inspection and other; Absent drooling Teeth exam: Present normal inspection Throat exam: Present tonsillar erythema and tonsillomegaly Neck Neck exam: Present normal inspection, full ROM and trachea midline; Absent tenderness, meningismus or lymphadenopathy Chest Chest inspection: Present normal inspection and symmetric chest wall rise; Absent tenderness Respiratory Respiratory exam: Present normal lung sounds bilaterally; Absent respiratory distress, wheezes or stridor Cardiovascular Cardiovascular exam: Present regular rate, normal rhythm and normal heart sounds; Absent tachycardia or irregular rhythm Abdominal Exam Abdominal exam: Present soft and normal bowel sounds; Absent distention, tend erness, guarding, rebound or rigidity Extremities Exam Extremities exam: Present normal inspection and normal capillary refill; Absent tenderness, joint swelling or calf tenderness Back Exam Back exam: Present normal inspection and full ROM; Absent tenderness, CVA tenderness (R) or CVA tenderness (L) Neurological Exam Neurological exam: Present alert, oriented X3, CN II-XII intact, normal gait and reflexes normal; Absent motor sensory deficit Psychiatric Psychiatric exam: Present normal affect and normal mood Skin Skin exam: Present warm, dry, intact and normal color Lymphatic Lymphatic Findings: no adenopathy Medical Decision Making Medical Records Medical records reviewed: No I reviewed the patient's medical records. Screening: Per USPSTF and CDC recommendations, given the prevalence of disease in our region, it is our hospital?s policy to screen for HIV and viral Hepatitis for all patients aged 18 and over and those with ongoing risk factors. [place] Inquiry Pt receiving controlled substance: No Vital Signs: 09/24/24 16:56 Temperature 98.3 F Temperature Source Oral Pulse Rate [Left Radial] 61 Respiratory Rate 18 Blood Pressure [Left Arm] 139/77 Blood Pressure Mean [Left Arm] 97 02 Sat by Pulse Oximetry 98
[2024-09-24] MEDS: DEXAMETHASONE 4MG/ML 1ML VIAL 8 MG IM (17:14)
[2024-09-24] MEDS: cefTRIAXone 1GM VIAL 1 GM IM (17:14)
[2024-09-24 17:36] VITALS: BP 139/77; PULSE 61; RESP 18; TEMP 36.8
== END 2024-09-24 17:38 | disposition home or self-care (01) ==
PROVIDERS: Emergency Provider Nurse Practitioner Family; PCP Nurse Practitioner Family
DX: J32.9 Chronic sinusitis, unspecified (principal); H66.91 Otitis media, unspecified, right ear; R50.9 Fever, unspecified; H92.01 Otalgia, right ear; M54.2 Cervicalgia; R51.9 Headache, unspecified; R63.8 Other symptoms and signs concerning food and fluid intake; R05.9 Cough, unspecified
CPT/HCPCS: 96372; 99212; G0381; J0696; J1100

== ENCOUNTER 2024-09-27 09:04 | Emergency (ER) | payer MEDICARE, SELFPAY ==
[2024-09-27] VITALS (11 sets, daily range): BP systolic 122–148; BP diastolic 65–84; PULSE 56–66; RESP 14–21; TEMP 36.7–36.8; O2SAT 92–97; BMI 23.7
--- NOTE | 2024-09-27 09:12 | ECG_ITS ---
APPROVED REPORT Exam: Resting ECG HR:57 bpm ECG Measurements Heart Rate 57 AXES TN 187 P 36 QRSd 97 QRS 12 QT 440 T 61 QTc 434 Conclusion SINUS BRADYCARDIA NONSPECIFIC T-WAVE ABNORMALITY BORDERLINE ECG Electronically signed by : KENN CARBALLO, 10/01/2024 08:09:18
[2024-09-27 09:32] LABS: Basophils # 0.1 K/mm3 (0-0.2); Basophils % 0.3 % (0.1-2.0); Eosinophils # 0.1 K/mm3 (0.0-0.4); Eosinophils % 0.6 % (0.1-12.0); Hemoglobin 12.3 g/dL (14.1-18.0); Lymphocytes # 5.4 K/mm3 (0.7-4.5); Lymphocytes % 22.7 % (10-50); Mean Corpuscular HGB Conc 32.4 g/dL (31.8-35.4); Mean Corpuscular Volume 77.2 fl (80-94); Mean Platelet Volume 9.3 fl (7.4-10.4); Monocytes # 1.4 K/mm3 (0.1-1.0); Monocytes % 5.8 % (1.7-9.3); Neutrophils # 16.5 K/mm3 (1.8-7.8); Neutrophils % 69.8 % (37.0-80.0); Platelet Count 458 K/mm3 (142-424); Red Blood Count 4.92 M/mm3 (4.60-6.20); Red Cell Distribution Width 16.7 % (11.5-17.5); White Blood Count 23.6 K/mm3 (4.8-10.8)
[2024-09-27 09:34] LABS: MANUAL DIFFERENTIAL MANUAL DIFFERENTIAL (MANUAL DIFF)
--- NOTE | 2024-09-27 09:38 | CT_ITS ---
PROCEDURE INFORMATION: Exam: CT Abdomen And Pelvis With Contrast Exam date and time: 09/27/2024 10:26 AM Age: 69 years old Clinical indication: Abdominal pain; Localized; Right upper quadrant (ruq); Additional info: Ruq pain to chest TECHNIQUE: Imaging protocol: Computed tomography of the abdomen and pelvis with contrast. Radiation optimization: All CT scans at this facility use at least one of these dose optimization techniques: automated exposure control; mA and/or kV adjustment per patient size (includes targeted exams where dose is matched to clinical indication); or iterative reconstruction. Contrast material: ISOVUE; Contrast volume: 75 ml; Contrast route: IV; COMPARISON: US ABD. AORTA SCREENING 08/23/2024 8:04 AM FINDINGS: Lungs: The lung bases are clear. Coronary arteries: Calcified coronary artery disease. Esophagus: The distal esophagus appears thickened. Diaphragm: There is a large hiatus hernia. Liver: Hepatic steatosis. No focal liver lesion identified. Gallbladder and biliary ducts: The gallbladder is unremarkable with no calcified stones visualized and no strandy inflammatory changes surrounding the gallbladder. Pancreas: The pancreas is normal in appearance. No evidence of pancreatic ductal dilatation. Spleen: The spleen is normal in appearance. Adrenal glands: The adrenal glands are normal in appearance. Kidneys and ureters: The kidneys are normal in appearance. There are multiple, simple bilateral renal cortical cysts. The largest cyst is on the left and measures about 5.5 cm. No evidence of hydronephrosis or hydroureter. No nephroureteral calculi are identified. Stomach and bowel: The small bowel loops are not thickened and are nondilated. There is colonic diverticulosis but no evidence of diverticulitis. Appendix: The appendix is normal in appearance. No evidence of appendicitis. Intraperitoneal space: There is a moderate volume of intra-abdominal free air. The source of the free air is indeterminate as there are no strandy inflammatory changes surrounding in the of the bowel loops or stomach however most of the free air is centered in the perigastric region. Trace ascites adjacent to the liver as well as in the deep pelvis. Vasculature: There is an infrarenal abdominal aortic aneurysm measuring 4.1 cm. No evidence of aneurysm rupture. Lymph nodes: Unremarkable. No enlarged lymph nodes. Urinary bladder: The urinary bladder is normal in appearance. Reproductive: Unremarkable as visualized. Bones/joints: Sclerotic changes to the sacroiliac joints. No acute osseous lesions. There are chronic degenerative changes throughout the visualized spine. Soft tissues: Unremarkable. IMPRESSION: 1. Pneumoperitoneum the source of the free air is indeterminate as there are no strandy inflammatory changes surrounding the stomach or bowel. The free air appears slightly more concentrated around the stomach which may be the source. 2. Large hiatus hernia and mild thickening of the distal esophagus but no air or fluid surrounding the esophagus. 3. Hepatic steatosis. 4. 4.1 cm infrarenal abdominal aortic aneurysm without rupture. 5. Trace ascites. COMMENTS: 1. THIS REPORT CONTAINS FINDINGS THAT MAY BE CRITICAL TO PATIENT CARE. The exam findings were verbally communicated by me to KENN CARBALLO via telephone conference at 11:39 AM EST on 09/27/2024. The findings were acknowledged and understood. 2. Consistent with the [employer]'s Incidental Findings Committee white paper (J Am Zahra Radiol 2018): Any incidental renal lesion less than 1 cm or classified as too small to characterize, or any incidental cystic renal lesion characterized as simple-appearing, is likely benign. No follow-up imaging is recommended for these lesions per consensus recommendations based on imaging criteria.
--- NOTE | 2024-09-27 09:41 | XR_ITS ---
PROCEDURE INFORMATION: Exam: XR Chest Exam date and time: 09/27/2024 10:02 AM Age: 69 years old Clinical indication: Pain; Chest pressure; Additional info: Cp TECHNIQUE: Imaging protocol: Radiologic exam of the chest. Views: 1 view. COMPARISON: CR XR CHEST PORTABLE 03/09/2023 10:06 AM FINDINGS: Lungs: Unremarkable. No consolidation. Pleural spaces: Unremarkable. No pleural effusion. No pneumothorax. Heart/Mediastinum: Unremarkable. No cardiomegaly. Bones/joints: Unremarkable. IMPRESSION: No acute findings.
--- NOTE | 2024-09-27 09:41 | HMH.EDGENADL ---
Discharge Plan Disposition Patient Disposition: Xfer Short-Term Hosp Chief Complaint: Abdominal Pain Prescriptions Prescriptions: No Action aspirin 81 mg tablet 81 mg PO DAILY melatonin 10 mg capsule 10 mg PO HS PRN rivastigmine 9.5 mg/24 hour patch 24 hour 9.5 mg TRANSDERMA DAILY multivitamin [One-A-Day Essential] Tablet 1 tab PO DAILY Qty: 90 2RF hydroxyzine HCl 50 mg tablet 50 mg PO BID PRN (Reason: anxiety) Qty: 14 0RF escitalopram oxalate 10 mg tablet See Rx Instructions .ROUTE .COMPLEX Qty: 90 0RF Dose Instruction: TAKE 1 TABLET BY MOUTH DAILY FOR MOOD Rx Instructions: TAKE 1 TABLET BY MOUTH DAILY FOR MOOD memantine 28 mg capsule,sprinkle,ER 24hr See Rx Instructions .ROUTE .COMPLEX Qty: 90 0RF Dose Instruction: TAKE 1 CAPSULE BY MOUTH DAILY FOR ALZHEIMERS Rx Instructions: TAKE 1 CAPSULE BY MOUTH DAILY FOR ALZHEIMERS metoprolol succinate 25 mg tablet extended release 24 hr See Rx Instructions .ROUTE .COMPLEX Qty: 90 0RF Dose Instruction: TAKE ONE TABLET BY MOUTH EVERY DAY FOR HIGH BLOOD PRESSURE Rx Instructions: TAKE ONE TABLET BY MOUTH EVERY DAY FOR HIGH BLOOD PRESSURE hydrochlorothiazide 12.5 mg tablet See Rx Instructions .ROUTE .COMPLEX Qty: 90 0RF Dose Instruction: TAKE 1 TABLET BY MOUTH ONCE DAILY FOR FLUID Rx Instructions: TAKE 1 TABLET BY MOUTH ONCE DAILY FOR FLUID atorvastatin 80 mg tablet 80 mg PO DAILY Qty: 90 3RF clopidogrel 75 mg tablet See Rx Instructions .ROUTE .COMPLEX Qty: 30 11RF Dose Instruction: TAKE ONE TABLET BY MOUTH EVERY DAY Rx Instructions: TAKE ONE TABLET BY MOUTH EVERY DAY amoxicillin 875 mg tablet 875 mg PO Q12H Qty: 20 0RF methylprednisolone 4 mg Tablets,Dose Pack 4 mg PO DIRECTED 6 Days Qty: 21 0RF Rx Instructions: Take 1 pack as directed for 6 days Referrals Follow up/Referrals: Vipul Cameron APRN [Primary Care Provider] - See instructions Clinical Impressions Clinical Impression: Pneumoperitoneum, Hiatal hernia Instructions Patient Instructions: DI for Acute Abdominal Pain Print Language Print Language: Pakistani Discharge ED Provider: Travis Villanueva General Adult HPI General Chief complaint: Abdominal Pain Stated complaint: upper Abd. pain Time Seen by Provider: 09/27/24 09:10 Mode of Arrival: Wheelchair Source of Information: Patient and Relative Limitations: No Limitations Description of Symptoms (Recalled from ER Triage Doc. by RN): pt is from home started having right sided chest pain/ upper abd pain last night thats gotten worse, pt recently on azithromycin and augmentin, sister at bedside is poa, pt has alzheimers History of Present Illness HPI narrative: Patient is a 69-year-old male with past medical history of hypertension, hyperlipidemia, abdominal aortic aneurysm, coronary artery disease who presents emergency department for evaluation of right upper quadrant pain. Onset was acute, over the last 12 hours, it radiates up into his right and central chest. It does not go through to his back. Normal stooling, no dysuria. Past abdominal surgical history of hernia, still has appendix and gallbladder. No other acute complaints at this time Related Data Home Medications ?Medication ?Instructions ?Recorded ?Confirmed rivastigmine 9.5 mg/24 hour 9.5 mg transdermal DAILY Alzheimers 09/15/21 08/15/24 transdermal patch aspirin 81 mg tablet 81 mg PO DAILY 06/23/23 08/15/24 melatonin 10 mg capsule 10 mg PO HS PRN 06/23/23 08/15/24 Previous Rx's ?Medication ?Instructions ?Recorded multivitamin (One-A-Day Essential 1 tab PO DAILY Supplement #90 tabs 10/17/22 tablet) hydroxyzine HCl 50 mg tablet 50 mg PO BID PRN anxiety #14 tabs 03/22/24 escitalopram oxalate 10 mg tablet See Rx Instructions .Route 07/18/24 .COMPLEX #90 tabs hydrochlorothiazide 12.5 mg tablet See Rx Instructions .Route 07/18/24 .COMPLEX #90 tabs memantine 28 mg capsule See Rx Instructions .Route 07/18/24 sprinkle,extended release 24hr .COMPLEX #90 caps metoprolol succinate 25 mg See Rx Instructions .Route 07/18/24 tablet,extended release 24 hr .COMPLEX #90 tabs atorvastatin 80 mg tablet 80 mg PO DAILY #90 tabs 09/18/24 clopidogrel 75 mg tablet See Rx Instructions .Route 09/18/24 .COMPLEX #30 tabs amoxicillin 875 mg tablet 875 mg PO Q12H #20 tabs 09/24/24 methylprednisolone 4 mg tablets in 4 mg PO DIRECTED 6 days #21 tabs 09/24/24 a dose pack Allergies Allergy/AdvReac Type Severity Reaction Status Date / Time No Known Allergies Allergy Verified 08/15/24 13:21 PFSH PFSH Disclaimer: The information contained in this section may have been updated after the patient was seen, as this information can be updated by other users. Medical History Colon cancer screening Patient new to facility Encounter for pre-operative cardiovascular clearance AAA (abdominal aortic aneurysm) Alzheimer's dementia without behavioral disturbance Bilateral carotid bruits CAD (coronary artery disease) [place] coronary artery calcium score greater than 400 Family history of heart disease Subclavian artery stenosis, left Left arm pain Atypical angina Surgical History History of hernia surgery Hx of heart artery stent History of surgery thrombectomy ble Family History Other Family history of cancer Family history of cardiac disorder Family history of diabetes mellitus Social History Smoking Status: Never smoker alcohol intake: never substance use type: marijuana current occupational status: retired and disabled Travel in the last 8 weeks: None household members: none housing: house current occupational exposures/hazards: No Have you lived/traveled outside US in past 30 days?: No Contact w/someone who lives/traveled outside US past 30 days?: No Exposure to someone with infectious disease in past 14 days?: No Do you have a fever (greater than 100.4 F or 38 C)?: No Have you tested positive for COVID-19: No Exposed to someone with COVID-19 in past 14 days?: No Do you have a sore throat?: No Do you have a cough?: No Do you have any weakness?: No Do you have any diarrhea?: No Are you experiencing any unusual bleeding?: No Do you have any muscle aches/pain?: No Do you have any abdominal pain?: Yes Are you experiencing loss of taste or smell?: No Other Medical History Have you received the Flu Vaccine for this season: No Have you received the Pneumonia Vaccine: No ROS Obtained: Yes Systems reviewed as appropriate & no additional complaints except as documented Physical Exam General General appearance: alert and in no apparent distress Head Head exam: atraumatic and normocephalic Eye Eye exam: Present PERRL ENT ENT exam: Present mucous membranes moist Neck Neck exam: Present normal inspection Chest Chest inspection: Present normal inspection and symmetric chest wall rise Respiratory Respiratory exam: Present normal lung sounds bilaterally; Absent respiratory distress Cardiovascular Cardiovascular exam: Present regular rate and normal rhythm Abdominal Exam Abdominal exam: Present distention (Mild distention), tenderness (Epigastric right upper quadrant, right lower quadrant) and guarding (Voluntary) Extremities Exam Extremities exam: Present normal inspection Neurological Exam Neurological exam: Present alert Psychiatric Psychiatric exam: Present normal affect Skin Skin exam: Present warm and dry Medical Decision Making Medical Records Screening: Per USPSTF and CDC recommendations, given the prevalence of disease in our region, it is our hospital?s policy to screen for HIV and viral Hepatitis for all patients aged 18 and over and those with ongoing risk factors. [place] Inquiry Pt receiving controlled substance: No Vital Signs: 09/27/24 09:05 09/27/24 09:30 09/27/24 10:00 Temperature 98.2 F Temperature Source Oral Pulse Rate 58 L 61 Pulse Rate [Left Radial] 56 L Respiratory Rate 20 18 18 Blood Pressure 143/84 H 131/79 Blood Pressure [Right Arm] 148/84 H Blood Pressure Mean [Right Arm] 105 02 Sat by Pulse Oximetry 97 92 L 94 L Oxygen Delivery Method Room Air Room Air Room Air 09/27/24 10:34 09/27/24 11:00 Temperature Temperature Source Pulse Rate 62 57 L Pulse Rate [Left Radial] Respiratory Rate 16 18 Blood Pressure 144/77 H 122/68 Blood Pressure [Right Arm] Blood Pressure Mean [Right Arm] 02 Sat by Pulse Oximetry 96 97 Oxygen Delivery Method Room Air Room Air Lab Data Lab Results 09/27/24 09:08: WBC 23.6 H*, RBC 4.92, Hgb 12.3 L, Hct 38.0 L, MCV 77.2 L, MCH 25.0 L, MCHC 32.4, RDW 16.7, Plt Count 458 H, MPV 9.3, Neut % (Auto) 69.8, Lymph % (Auto) 22.7, [place] % (Auto) 5.8, Eos % (Auto) 0.6, Baso % (Auto) 0.3, Neut # (Auto) 16.5 H, Lymph # (Auto) 5.4 H, [place] # (Auto) 1.4 H, Eos # (Auto) 0.1, Baso # (Auto) 0.1, Total Counted 100, Neutrophils % (Manual) 70, Lymphocytes % (Manual) 28, Monocytes % (Manual) 2, Platelet Estimate Slight increase, RBC Morphology Normal, Ovalocytes 1+, Sodium 134 L, Potassium 3.3 L, Chloride 96 L, Carbon Dioxide 28, Anion Gap 13.3, BUN 19, Creatinine 1.30 H, Estimated Creat Clear 62, Estimated GFR 55 L, Est GFR ( Amer) 66, Glucose 112 H, Calcium 10.0, Total Bilirubin 0.7, AST 47, ALT 25, Alkaline Phosphatase 143 H, Troponin I < 0.01, Total Protein 8.0, Albumin 4.8, Globulin 3.2, Albumin/Globulin Ratio 1.5 09/27/24 09:20: Direct Bilirubin 0.4, Lipase 372 H 09/27/24 09:49: VBG pH 7.42 H, VBG pCO2 38.5, VBG pO2 32.5, VBG HCO3 24.4, VBG Total CO2 25.5, VBG O2 Saturation 64.4, VBG Base Excess -0.1, VBG Lactic Acid 2.0 09/27/24 11:30: Urine Color Yellow, Urine Appearance Clear, Urine pH 6.0, Ur Specific [place] 1.010, Urine Protein Negative, Urine Glucose (UA) Negative, Urine Ketones Negative, Urine Blood Negative, Urine Nitrate Negative, Urine Bilirubin Negative, Urine Urobilinogen 0.2, Ur Leukocyte Esterase Negative, Urine RBC None, Urine WBC Occasional, Ur Squamous Epith Cells Occasional, Urine Bacteria None 09/27/24 09:08 09/27/24 09:08 Orders (Tests/Meds): ED MEDICATIONS Discontinued Medications Generic Name Dose Route Start Last Admin Trade Name Freq PRN Reason Stop Dose Admin Acetaminophen 1,000 mg 09/27/24 10:00 09/27/24 10:05 Acetaminophen 1,000mg/100ml Vial IV 09/27/24 10:01 1,000 mg ONCE ONE Administration Piperacillin Sod/Tazobactam 50 mls @ 100 mls/hr 09/27/24 09:40 09/27/24 10:15 Sod 3.375 gm/ Sodium Chloride IV 09/27/24 10:09 100 mls/hr ONCE ONE Administration Lactated Ringer's 1,000 mls @ 999 mls/hr 09/27/24 09:40 09/27/24 10:05 Lactated Ringer's 1000 Ml Bag IV 09/27/24 10:40 999 mls/hr .Q1H1M ONE Administration Iopamidol 75 ml 09/27/24 10:26 09/27/24 10:27 Iopamidol-370 (76%);100ml Bottle IV 09/27/24 10:27 75 ml ONCE ONE Administration Morphine Sulfate 4 mg 09/27/24 09:40 09/27/24 10:05 Morphine 4mg/Ml Syringe IV 09/27/24 09:41 4 mg ONCE ONE Administration Ondansetron HCl 4 mg 09/27/24 09:40 09/27/24 10:05 Ondansetron 4mg/2ml Vial IV 09/27/24 09:41 4 mg ONCE ONE Administration Sodium Chloride 10 ml 09/27/24 10:26 09/27/24 10:27 Sodium Chloride 0.9% 10ml Syr (Rad Only) IV 09/27/24 10:27 10 ml ONCE ONE Administration ORDERS Category Date Time Status CT abdomen pelvis w con Stat Cat Scan 09/27/24 09:38 Completed CXR --portable [XR chest portable] Stat Exams 09/27/24 09:41 Completed Bilirubin,Direct Stat Lab 09/27/24 09:20 Completed Complete Blood Count Auto Diff Stat Lab 09/27/24 09:08 Completed Comprehensive Metabolic Panel Stat Lab 09/27/24 09:08 Completed Lipase Stat Lab 09/27/24 09:20 Completed Troponin I Stat Lab 09/27/24 09:08 Completed UA [Urinalysis and Microscopic] Stat Lab 09/27/24 11:30 Completed Blood Culture Stat Micro 09/27/24 10:08 Received VBG [Venous Blood Gas] Stat RT 09/27/24 09:49 Completed ECG Data Tracing #1: Independently interpreted by me rate is 58, rhythm is regular, axis is normal, no ST elevation in anatomical contiguous leads, significant chatter, QTc 428 Tracing #2: Independently interpreted by me rate 57, rhythm is regular, axis is normal, no ST elevation in anatomical contiguous leads, QTc 434. Medical Decision Narrative: In summary patient is 69-year-old male past medical history described above who presents emergency department for evaluation of right upper quadrant pain radiating up to his chest. Patient is hemodynamically stable nontoxic-appearing upon arrival, tenderness right upper abdomen with voluntary guarding, afebrile. My concern for hepatobiliary disease is high, differential includes cholecystitis, choledocholithiasis, among others. Patient may also be having atypical ACS. He has an abdominal aortic aneurysm which imaging ultrasound reviewed from July of this year shows abdominal aortic aneurysm of 4 cm. Patient does not have peritonitis and is focally tenderness is right hemiabdomen suspect that his abdominal aortic aneurysm is not the culprit at this time. Workup will be conducted with hematologic labs, CT abdomen pelvis IV contrast, chest x-ray, EKG, troponins. Initial inventions include morphine, Zofran, Zosyn, crystalloid bolus. Initial workup reviewed by me, leukocytosis 23.6, mild thrombocytosis, acid-base status compensated no elevated lactic, no critical electrolyte abnormality there is mild hypokalemia, mild elevated creatinine that does not meet BRIAN criteria per rifle criteria initial troponin undetectably low lipase 372. AST and ALT not elevated bilirubin not elevated. Chest x-ray informally interpreted by me, no dense lobar opacities or large pneumothorax. CT imaging of the abdomen pelvis informally visualized by me there appears to be free air and I will have radiology contact for expedited read at this time. I discussed case with ad radiologist who states there is free air in the abdomen likely secondary to perforated hollow viscus. There is no signs of inflammation but his best guess is it is the posterior duodenum. I subsequently discussed the case with Dr. Joshi who is currently in a complex surgery for ruptured hollow viscus in a separate patient. Due to resource utilization and the fact that it may be near hepatobiliary structures will require higher level of care. The case was discussed with Dr. Araujo at 12:30 PM. They are waiting surgery callback. Patient remains in hemodynamically stable condition and still needs transfer to higher level of care given that surgeon here is uncomfortable operating. Case was discussed with [facility] Dr. Pena who graciously accepted patient for transfer for continued evaluation at this time. Critical Care Critical Care Time Critical Care Time: Yes Attestation: On 09/27/24, the high probability of a clinically significant, sudden or life threatening deterioration of the following system(s) required my full and direct attention, intervention and personal management. The time I documented below is in addition to time spent performing reported procedures but includes the following listed in this critical care notation. Total Time Total Critical Care Time: 40
[2024-09-27 09:46] LABS: Lymphocytes % 28 % (10-50); Monocytes % 2 % (2-9); Neutrophils % 70 % (42-76); Ovalocytes 1+; Platelet Estimate Slight Increase; RBC Morphology Normal; Total Cells Counted 100
[2024-09-27 09:51] LABS: Alanine Aminotransferase 25 U/L (12-78); Albumin Level 4.8 g/dl (3.5-5.0); Albumin/Globulin Ratio 1.5 (1.1-1.8); Alkaline Phosphatase 143 U/L (38-126); Anion Gap 13.3 mEq/L (5-15); Aspartate Amino Transferase 47 U/L (17-59); Bilirubin,Total 0.7 mg/dl (0.2-1.3); Blood Urea Nitrogen 19 mg/dl (9-20); Carbon Dioxide 28 mmol/L (22.0-30.0); Chloride 96 mmol/L (98-107); Creatinine Clearance Estimated 62 mL/min (50-200); Estimated Glomerular Filt Rate 55 ml/min (>60); GFR (African American) 66 ML/MIN (>60); Globulin 3.2 g/dL (1.3-3.2); Glucose 112 mg/dl (74-100); Potassium 3.3 mmoL/L (3.5-5.1); Sodium 134 mmol/L (136-145)
[2024-09-27 09:51] LABS: Bilirubin,Direct 0.4 mg/dl (0.0-0.4); Lipase 372 U/L (23-300)
--- NOTE | 2024-09-27 09:51 | PC.NURSE ---
IS AT BS
[2024-09-27 10:04] LABS: Troponin I < 0.01 ng/ml (0.00-0.034)
[2024-09-27] MEDS: MORPHINE 4MG/ML SYRINGE 4 MG IV (10:05)
[2024-09-27] MEDS: LACTATED RINGERS 1000ML 1,000 ML 999 ML IV (10:05)
[2024-09-27] MEDS: ONDANSETRON 4MG/2ML VIAL 4 MG IV (10:05)
[2024-09-27] MEDS: ACETAMINOPHEN 1,000MG/100ML VIAL 1000 MG IV (10:05)
--- NOTE | 2024-09-27 10:06 | PC.NURSE ---
Gave patient another blanket.
[2024-09-27] MEDS: PIPERACILLIN/TAZO 3.375 GM in 0.9 % SODIUM CHLORIDE 50 ML IV (10:15)
[2024-09-27 10:17] LABS: VBG Base Excess -0.1 mmol/L (-2.4-2.3); VBG HCO3 24.4 mmol/L (23-30); VBG Oxygen Saturation 64.4 % (50-70); VBG PCO2 38.5 mmol/L (35-51); VBG PH 7.42 mmol/L (7.31-7.41); VBG PO2 32.5 mmol/L (28-40); VBG Total CO2 25.5 mmol/L (23-27)
[2024-09-27] MEDS: SODIUM CHLORIDE 0.9% 10ML SYR (RAD ONLY) 10 ML IV (10:27)
[2024-09-27] MEDS: IOPAMIDOL-370 (76%);100ML BOTTLE 75 ML IV (10:27)
--- NOTE | 2024-09-27 10:30 | PC.NURSE ---
Patient back from radiology
--- NOTE | 2024-09-27 11:29 | PC.NURSE ---
RADIOLOGY NOTIFIED TO CONTACT RADIOLOGIST READING SCAN FOR STAT READ
--- NOTE | 2024-09-27 11:32 | PC.NURSE ---
DR CARBALLO AT BEDSIDE TO UPDATE PT AND FAMILY PT RATES PAIN 3/10 AT THIS TIME
[2024-09-27 11:37] LABS: Microscopic, Urine URINE MICROSCOPIC (MICROSCOPIC)
--- NOTE | 2024-09-27 11:45 | PC.NURSE ---
IMAGES POWERSHARED WITH [facility]
[2024-09-27 11:46] LABS: Appearance,Urine CLEAR (Clear); Bilirubin,Urine Negative (Negative); Blood, Urine Negative (Negative); Color,Urine YELLOW (Yellow); Glucose,Urine (UA) Negative (Negative); Ketones,Urine Negative (Negative); Leukocyte Esterase,Urine Negative (Negative); Nitrate,Urine Negative (Negative); Protein,Urine Negative (Negative); Urobilinogen,Urine 0.2 EU/dl (0.2)
--- NOTE | 2024-09-27 11:48 | PC.NURSE ---
[facility] CONTACTED FOR TRANSFER, AWAITING CALL BACK
[2024-09-27 11:55] LABS: Squamous Epithelial Cell,Urine Occasional #/hpf (0-5); WBC,Urine Occasional #/hpf (0-3)
--- NOTE | 2024-09-27 12:31 | PC.NURSE ---
DR CARBALLO SPEAKING WITH [facility]
--- NOTE | 2024-09-27 12:35 | PC.NURSE ---
DR CARBALLO SPEAKING WITH SURGERY AT
--- NOTE | 2024-09-27 12:46 | PC.NURSE ---
[facility] NOTIFIED OF TRANSFER
--- NOTE | 2024-09-28 14:22 | PC.NURSE ---
[facility] C[facility] FAXED TO [phone]
== END 2024-09-27 14:36 | disposition short-term general hospital (02) ==
PROVIDERS: Emergency Provider Emergency Medicine; PCP Nurse Practitioner Family
DX: K44.9 Diaphragmatic hernia without obstruction or gangrene (principal); K66.8 Other specified disorders of peritoneum; R07.9 Chest pain, unspecified; R10.11 Right upper quadrant pain
CPT/HCPCS: 71045; 74177; 80053; 81001; 82248; 82803; 83690; 84484; 85007; 85025; 85027; 87040; 87077; 87186; 93005; 96361; 96365; 96374; 96375; 99291; J0131; J2270; J2405; J2543; J7120; Q9967

== ENCOUNTER 2025-02-06 14:28 | Outpatient (CLI) | payer MEDICARE, SELFPAY | END 2025-02-06 23:59 | disposition home or self-care (01) | LOC: LAB 14:29 | PROVIDERS: PCP Nurse Practitioner Family; Visit Provider Nurse Practitioner Family | DX: R14.2 Eructation (principal); R14.0 Abdominal distension (gaseous); R10.9 Unspecified abdominal pain | CPT/HCPCS: 83013 ==

== ENCOUNTER 2025-02-12 14:11 | Outpatient (CLI) | payer MEDICARE, SELFPAY ==
[2025-02-12 15:08] LABS: Basophils # 0.1 K/mm3 (0-0.2); Basophils % 1.1 % (0.1-2.0); Eosinophils # 0.5 Kmm3 (0.0-0.4); Eosinophils % 5.8 % (0.1-12.0); Hematocrit 32.1 % (42.0-52.0); Hemoglobin 9.8 g/dL (14.1-18.0); Immature Granulocytes # 0.04 10^3uL; Immature Granulocytes % 0.4 %; Lymphocytes # 2.8 K/mm3 (0.7-4.5); Lymphocytes % 30.2 % (10-50); Mean Corpuscular HGB Conc 30.5 g/dL (31.8-35.4); Mean Corpuscular Hemoglobin 22.8 pg (27.0-31.2); Mean Corpuscular Volume 74.8 fl (80-94); Monocytes # 0.7 K/mm3 (0.1-1.0); Monocytes % 7.1 % (1.7-9.3); Neutrophils # 5.2 K/mm3 (1.8-7.8); Neutrophils % 55.4 % (37.0-80.0); Nucleated Red Blood Cells # 0 10^3/uL; Nucleated Red Blood Cells % 0 %; Platelet Count 587 K/mm3 (142-424); Red Blood Count 4.29 M/mm3 (4.60-6.20); Red Cell Distribution Width 20.1 % (11.5-17.5); Red Cell Distribution Width-SD 53.8 fL; White Blood Count 9.3 K/mm3 (4.8-10.8)
[2025-02-12 15:29] LABS: Albumin Level 4.1 g/dl (3.5-5.0); Chloride 104 mmol/L (98-107); Sodium 136 mmol/L (136-145)
[2025-02-12 15:30] LABS: Potassium 4.3 mmoL/L (3.5-5.1)
[2025-02-12 15:32] LABS: Alanine Aminotransferase 15 U/L (12-78); Anion Gap 11.3 mEq/L (5-15); Aspartate Amino Transferase 41 U/L (17-59); Bilirubin,Unconjugated 0.5 mg/dL (0.0-1.1); Blood Urea Nitrogen 16 mg/dl (9-20); Carbon Dioxide 25 mmol/L (22.0-30.0); Cholesterol 118 mg/dl (140-200); Estimated Glomerular Filt Rate 60 ml/min (>60); GFR (African American) 72 ML/MIN (>60); Total Protein,Serum 7.1 g/dl (6.3-8.2); Triglycerides 99 mg/dl (30-150); VLDL Cholesterol 20 mg/dL (0-40)
[2025-02-12 15:33] LABS: Alkaline Phosphatase 99 U/L (38-126); Bilirubin,Direct 0.3 mg/dl (0.0-0.4); Bilirubin,Indirect 0.5 mg/dL (0.0-0.9); Bilirubin,Total 0.8 mg/dl (0.2-1.3); Calcium 9.2 mg/dl (8.4-10.2); Chol/HDL Ratio 2.9 (1-3.5); Glucose 97 mg/dl (74-100); HDL Cholesterol 41 mg/dl (40-60); Magnesium 1.9 mg/dl (1.6-2.3)
[2025-02-12 15:52] LABS: Direct LDL Cholesterol 51.44 mg/dL (100-129)
[2025-02-12 15:57] LABS: Free T4 (Free Thyroxine) 0.86 ng/dl (0.78-2.19)
[2025-02-12 16:09] LABS: Thyroid Stimulating Hormone 0.45 uIU/mL (0.465-4.68)
== END 2025-02-12 23:59 | disposition home or self-care (01) ==
LOC: LAB 14:12
PROVIDERS: PCP Nurse Practitioner Family; Visit Provider Internal Medicine
DX: I25.10 Atherosclerotic heart disease of native coronary artery without angina pectoris (principal); I10 Essential (primary) hypertension
CPT/HCPCS: 36415; 80048; 80061; 80076; 83735; 84439; 84443; 85025

== ENCOUNTER 2025-03-08 10:53 | Outpatient (CLI) | payer MEDICARE, SELFPAY ==
--- NOTE | 2025-03-08 11:15 | CA_ITS ---
APPROVED REPORT EXAM: Comprehensive 2D, Doppler, and color-flow Echocardiogram Senior Vice President: Karina Liang CRT Ht: 6 ft 0 in Wt: 183lbs BSA: 2.05 BP: 99/62 mmHg Indications: Shortness of Breath 2D Dimensions LA Volume 37.60 mL LA Volume Index 17.90 mL/m2 (M/F) 16-34 M-Mode Dimensions RVDd 3.40 cm (0.9-2.6) LA Diam 4.50 cm (1.9-4.0) LVDd 4.64 cm (3.5-5.7) LVDs 2.04 cm (3.5-5.7) IVSd 1.02 cm (0.6-1.1) PWd 1.23 cm (0.6-1.1) EF (Teich) 86.50% FS 56.00% EDV (Teich) 99.30 mL TAPSE 2.50 (<1.7) ESV (Teich) 13.40 mL LV Diastology E Decel Time 190 (160-240 msec) E/A Ratio 1.30 MED A' 11.70 cm/s LAT A' 11.50 cm/s Aortic Valve AO Peak GR. 7.70 mmHg Mitral Valve MV E Max Ashwin. 85.0 (40-130 cm/s) MV A Velocity 65.0 (40-130 cm/s) E/A Ratio 1.30 MV PHT 56.0 ms Pulmonary Valve PV Peak Velocity 56.0 (50-150 cm/s) Tricuspid Valve TR P. Velocity 253.00 cm/s RAP Estimate 10.00 mmHg RVSP 35.50 mmHg Left Ventricle The left ventricle is normal size. The left ventricular systolic function is normal. The left ventricular ejection fraction is within the normal range. There is normal left ventricular wall thickness. There is normal LV segmental wall motion. The left ventricular diastolic function is normal. LVEF is 55%. Right Ventricle Right ventricle is mildly dilated. The right ventricular systolic function is normal. Atria Left atrium is mildly dilated. Right atrium is mildly dilated. There is no Doppler evidence of interatrial shunt. Aortic Valve The aortic valve is mildly thickened. There is no aortic valvular stenosis. No aortic regurgitation is present. Mitral Valve The mitral valve is normal in structure. Mild mitral regurgitation. Tricuspid Valve Tricuspid valve is grossly normal in structure and function. Mild tricuspid regurgitation. RVSP is 20-25 mmHg. Pulmonic Valve The pulmonary valve is normal in structure. Trace pulmonic regurgitation. Great Vessels The aortic root is normal in size. IVC is normal in size and collapses >50% with inspiration. Pericardium There is no pericardial effusion. Other Information Study Quality: Fair Conclusion Normal biventricular systolic function. Mild RV dilation. Biatrial dilation. Mild MR, mild TR. Electronically signed by : Marissa Edge MD 03/17/2025 17:15:52
--- OUTSIDE RECORDS SUMMARY | 2025-03-08 13:00 | XMS_ITS | Encounter Summary ---
Author Organization [facility] Address [address] [place] [address] Care Team Providers Care Chassis Wirer Name Role Phone Quoc Huber MD Primary Care Provider [phone] Leoncio Christian MD Unavailable [phone] Aditi Martin Unavailable [phone] Vipul Cameron APRN Primary Care Provider [phone] Reason for Visit * Reason Comments Med Refill Encounter Details Date Type Department Care Team (Late st Contact Info) Description 08/06/2023 Refill [facility] [address] [place] [address] Marcelle Naylor, PA [address] [place] [address] Alzheimer disease ([facility]) Social History Tobacco Use Types Packs/Day Years Used Date Smoking Tobacco: Never Smokeless Tobacco: Never Alcohol Use Standard Drinks/Week Comments Never 0 (1 standard drink = 0.6 oz pur e alcohol) PHQ-2 Answer Date Recorded Patient Health Questionnaire-2 Score 0 04/13/2023 PHQ-2A Answer Date Recorded Patient Health Questionnaire-2 Score 0 04/13/2023 Sex and Gender Information Value Date Recorded Sex Assigned at Male 09/27/2024 6:17 PM EST Legal Sex Male 7:49 PM EDT Gender Identity Not on file Sexual Orientation Not on file documented as of this encounter Plan of Treatment Not on file documented as of this encounter Visit Diagnoses Diagnosis Alzheimer disease (CMS/HCC) Alzheimer's disease documented in this encounter Additional Health Concerns Assessment Noted Time A fall risk assessment has been complete d for the patient 04/13/2023 8:35 AM EDT A Body Mass Index follow-up plan has been documented for the patient 04/13/2023 10:18 AM EDT documented as of this encounter Care Teams Chassis Wirer Relationship Specialty Start Date End Date Quoc Huber MD [address] [place] [id number] PCP - General 02/07/21 11/08/24 Vipul Cameron APRN [address] [place] [id number] PCP - General 11/09/24 Leoncio Christian MD [address] [place] [address] Consulting Physician Neurology 03/27/21 Aditi Martin PA [address] [place] [id number] Physician Customer Consultant Neurology 09/11/21 documented as of this encounter
--- OUTSIDE RECORDS SUMMARY | 2025-03-08 13:00 | XMS_ITS | Encounter Summary ---
Author Organization Healthcare Address [address] [place] [address] Care Team Providers Care Loop Machine Operator Name Role Phone Quoc Huber MD Primary Care Provider [phone] Leoncio Christian MD Unavailable [phone] Aditi Martin Unavailable [phone] Vipul Cameron APRN Primary Care Provider [phone] Reason for Visit * Reason Comments Med Refill Encounter Details Date Type Department Care Team (Late st Contact Info) Description 04/12/2023 Refill [facility] [address] [place] [address] Aditi Martin PA [address] [place] [address] Social History Tobacco Use Types Packs/Day Years [...] on file documented as of this encounter Functional Status * Over the past 2 weeks, how often have you been bothered by any of the following problems? Question Answer Date of Assessment Author Little interest or pleasure in doing things Not at all 04/13/2023 8:34 AM EDT Elba Mercado Feeling down, depressed, or hopeless Not at all 03/27 8:34 AM EDT Elba Mercado Patient Health Questionnaire-2 Score 0 03/27 8:34 AM EDT Elba Mercado * Calculated C-SSRS Risk Score (Lifetime/Recent) Answer Date of Assessment Author No Risk Indicated 04/13/2023 8:34 AM EDT [place] * Question Answer Date of Assessment Author 1. Wish to be (Past 1 Month) No 023 8:34 AM EDT Elba Mercado 2. Non-Specific Active Suici ayush Thoughts (Past 1 Month) No 04/13/2023 8:34 AM EDT Elba Mercado 6. Suicidal Behavior (Lifetime) No 8:34 AM EDT Elba Mercado documented as of this encounter Miscellaneous Notes * Telephone Encounter - Aditi Martin PA - 04/12/2023 12:48 PM EDT Yes, I have sent this in. documented in this encounter Plan of Treatment Not on file documented as of this encounter Visit Diagnoses Not on filedocumented in this encounter Additional Health Concerns Assessment Noted Time A fall risk assessment has been complete d for the patient 03/25/2022 12:50 PM EDT documented as of this encounter Care Teams Loop Machine Operator Relationship Specialty Start Date End Date Quoc Huber MD [address] [place] [id number] PCP - General 02/07/21 11/08/24 Vipul Cameron APRN [address] [place] [id number] PCP - General 11/09/24 Leoncio Christian MD [address] [place] [address] Consulting Physician Neurology 03/27/21 Aditi Martin PA [address] [place] [address] Physician Wire Straightening Machine Operator Neurology 09/11/21 documented as of this encounter
--- OUTSIDE RECORDS SUMMARY | 2025-03-08 13:00 | XMS_ITS ---
Laboratory report Created on: February 10, 2025 TUNG ROJO : 1955 Sex: Male Author Organization Unknown PROBLEMS Problems List Code Description RESULTS Laboratory Orders Date Order Code Test 2025-02-06 181782 H PYLORI BREATH TEST Laboratory Results Date LOINC Test Value Unit Reference Range Interpre tation 2025-02-06 [id number] H PYLORI BREATH TEST N NEGATIVE
--- OUTSIDE RECORDS SUMMARY | 2025-03-08 13:00 | XMS_ITS | Clinical Summary ---
Author Organization [facility] Address [address] [place] [address] Care Team Providers Care Bread Dough Mixer Name Role Phone Leoncio Christian MD Unavailable [phone] Aditi Martin Unavailable [phone] Vipul Cameron APRN Primary Care Provider [phone] Allergies No known active allergies Medications aspirin 81 MG EC tablet Take 1 tablet (81 mg) by mouth 1 (one) time each day. 0 Active clopidogrel (Plavix) 75 MG tablet Take 1 tablet (75 mg) by mouth 1 (one) time each day. 0 Active metoprolol succinate XL (Toprol-XL) 25 MG 24 hr tablet Take 1 tablet (25 mg) by mouth 1 (one) time each day. 0 Active atorvastatin (Lipitor) 80 MG tablet Take 1 tablet (80 mg) by mouth 1 (one) time each day. 1 Active Memantine HCl ER 28 MG capsule sustained-relea se 24 hr TAKE 1 CAPSULE BY MOUTH ONCE DAILY 90 capsule 1 2 Active hydroCHLOROthia zide (HYDRODiuril) 12.5 MG tablet Take 1 tablet (12.5 mg) by mouth 1 (one) time each day. 3 Active Melatonin 5 MG tablet tablet Take 2 tablets (10 mg) by mouth every night. Active escitalopram (Lexapro) 10 MG tabletIndicatio ns:Alzheimer disease (CMS/HCC) Take 1 tablet (10 mg) by mouth 1 (one) time each day. 90 tablet 3 Active multivitamin (Theragran) tablet Take 1 tablet by mouth 1 (one) time each day. Active hydrOXYzine HCl (Atarax) 50 MG tabletIndicatio ns:Anxiety Take 1 tablet (50 mg) by mouth 2 (two) times a day. 180 tablet 3 4 03/22/20 25 Active methocarbamol (Robaxin) 500 MG tablet Take 2 tablets (1,000 mg) by mouth 3 (three) times a day for 14 days. 84 tablet 5 Active Additional Information Patient not taking.Reported on 01/05/2025 METOPROLOL SUCCINATE PO .COMPLEX 4 Active rivastigmine (Exelon) 9.5 MG/24HR Place 1 patch on the skin daily. 90 patch 3 5 01/06/20 26 Active lamoTRIgine (LaMICtal) 25 MG tablet Take 2 tablets by mouth in the morning and 2 tablets before bedtime. 360 tablet 3 5 01/06/20 26 Active Active Problems Problem Noted Date Diagnosed Date Electrolyte imbalance 10/03/2024 Overview (10/03/2024): Monitor/trend Replete as needed Umbilical hernia 10/03/2024 Overview (10/03/2024): 09/28: Exploratory laparotomy, modified raul patch of prepyloric ulcer, NG/DHT placements, umbilical hernia repair, wound vacuum placement (Stephenie). CAD (coronary artery disease) 10/03/2024 Overview (10/03/2024): Resume ASA/Plavix on 10/03 Hiatal hernia 10/03/2024 Overview (10/03/2024): 10/02: Upper GI test through raul patch w/o leak. Moderate hiatal hernia. Esophageal dysmotility. Overweight (BMI 25.0-29.9) 10/03/2024 Overview (10/03/2024): BMI 25.42 GERD (gastroesophageal reflux disease) Overview (10/03/2024): PPI BID Pneumoperitoneum 09/27/2024 Overview (10/03/2024): 09/28: Exploratory laparotomy, modified raul patch of prepyloric ulcer, NG/DHT placements, umbilical hernia repair, wound vacuum placement (Stephenie). NGT removed 10/02: Upper GI test through raul patch w/o leak, Moderate hiatal hernia. Esophageal dysmotility. Advanced to [place] diet 10/03 Alzheimer disease 08/07/2020 Overview (10/03/2024): Mild dementia Encounters Date Type Department Care Team Description 01/05/2025 3:20 PM EDT Office Visit [facility] [address] [place] [address] Clara Murdock APRN Alzheimer disease (CMS/[facility]) (Primary Dx); Anxiety 01/05/2025 Travel 01/04/2025 [facility]ill [facility] [address] [place] [address] Clara Murdock APRN 12/12/2024 Telephone [facility] [address] [place] [address] Clara Murdock APRN from Last 3 Months Family History Medical History Relation Name Comments Other cancer Brother Conversions - Other Father Familial heart disease Other cancer Father Diabetes Maternal Great-Grandmother Conversions - Other Mother Familial heart disease Diabetes Mother Conversions - Other Sister 1 Familial heart disease Other cancer Sister 2 Relation Name Status Comments Brother Father Maternal Great-Grandmother Mother Sister 1 Sister 2 Social History Tobacco Use Types Packs/Day Years Used Date Smoking Tobacco: Never Smokeless Tobacco: Never Tobacco Cessation:Counseling Given: Not Answered Alcohol Use Standard Drinks/Week Comments Never 0 (1 standard drink = 0.6 oz pur e alcohol) Humiliation, Afraid, Rape, and Kick questionnair e Answer Date Recorded Within the last year, have y ou been afraid of your partner or ex-partner? No 10/03/2024 Within the last year, have y ou been humiliated or emotionally abused in other ways by your partner or ex-partner? No Within the last year, have y ou been kicked, hit, slapped, or otherwise physically hurt by your partner or ex-partner? No 10/03/2024 Within the last year, have y ou been raped or forced to have any kind of sexual activity by your partner or ex-partner? No 10/03/2024 PHQ-2 Answer Date Recorded Patient Health Questionnaire-2 Score 0 11/09/2024 Hunger Vital Sign Answer Date Recorded Within the past 12 months, y ou worried that your food would run out before you got the money to buy more. Never true 10/03/19 25 Within the past 12 months, t he food you bought just didn't last and you didn't have money to get more. Never true 10/03/2024 PRAPARE - Transportation Answer Date Re corded In the past 12 months, has l ack of transportation kept you from medical appointments or from getting medications? No 03/2025 In the past 12 months, has l ack of transportation kept you from meetings, work, or from getting things needed for daily living? No 10/03/2024 PHQ-9 Answer Date Recorded Patient Health Questionnaire-9 Score 0 11/09/2024 Housing Stability Vital Sign Answer Pedro e Recorded In the last 12 months, was t here a time when you were not able to pay the mortgage or rent on time? No 10/03/2024 In the past 12 months, how m any times have you moved where you were living? 1 10/03/2024 At any time in the past [address] [facility], were you homeless or living in a skilled nursing (including now)? No 10/03/2024 Utilities Answer Date Recorded In the past 12 months has th e electric, gas, oil, or water company threatened to shut off services in your home? No 10/03/2024 PHQ-2A Answer Date Recorded Patient Health Questionnaire-2 Score 0 04/13/2023 Sex and Gender Information Value Date Recorded Sex Assigned at Male 09/27/2024 6:17 PM EST Legal Sex Male 7:49 PM EDT Gender Identity Not on file Sexual Orientation Not on file Last Filed Vital Signs Vital Sign Reading Time Taken Comments Blood Pressure 107/71 01/05/2025 3:22 PM EDT Pulse 61 01/05/2025 3:22 PM EDT Temperature 36.6 C (97.8 F) 11/09/2024 9:44 AM EST Respiratory Rate 18 10/03/2024 3:32 PM EST Oxygen Saturation 97% 01/05/2025 3:22 PM EDT Inhaled Oxygen Concentration - - Weight 85.1 kg (187 lb 11.2 oz) 01/05/2025 3:22 PM EDT Height 182.9 cm (6') 01/05/2025 3:22 PM EDT Body Mass Index 25.46 01/05/2025 3:22 PM EDT Plan of Treatment Health Maintenance Due Date Last Done Comments [facility]-Hepatitis C Screening 1955 [facility]-Medicare Annual Wellness (AWV) 1955 [facility]-Infant/Child/Adol SDOH Screenings 1955 [facility]-DTaP,Tdap,and Td Vaccines (1 - Tdap) 11/30/1996 11/29/1996 CT Colonography 01/23/2000 Colonoscopy 01/23/2000 FIT-DNA 01/23/2000 FIT 01/23/2000 FOBT 01/23/2000 Sigmoidoscopy 01/23/2000 [facility]-Colorectal Cancer Screening 01/23/2000 [facility]-Pneumococcal Vaccine: 50+ Years (1 of 1 - PCV) 2005 [facility]-Zoster Vaccines (1 of 2) 2005 [id number] Vaccine (3 - season) 2024 08/09/2021, 12/04/2020 [facility]- SDOH Screenings 04/02/2025 [facility]-Adult SDOH Screenings 04/02/2025 10/03/2024 [facility]-Depression Screening 11/09/2025 11/09/2024, 10/28 [facility]-Influenza Vaccine Completed 06/28/2024 , 06/23/2023, 06/17/2022, Additional history exists [facility]-RSV Vaccine: 60+ Years or Completed 06/28/2024 [facility]-Obesity Intervention Completed 025, 11/09/2024, 09/27/2024, Additional history exists HPV Vaccines Aged Out No longer eligi ble based on patient's age to complete this topic [facility]-HIB Vaccines Aged Out No longer e ligible based on patient's age to complete this topic [facility]-Hepatitis A Vaccines Aged Out No longer eligible based on patient's age to complete this topic [facility]-IPV Vaccines Aged Out No longer e ligible based on patient's age to complete this topic [facility]-Rotavirus Vaccines Aged Out No lo nger eligible based on patient's age to complete this topic Insurance NILESH [place] [id number] [employer] MEDICARE Advance Directives Documents on File Type Date Recorded Patient Hydrology Technician Expl anation Power of Aviation Electronic Warfare Operator 10/05/2024 8:00 AM * Full Code (Latest Code Status on File) Date Activated Date Inactivated Comments 09/27/2024 4:09 PM 10/04/2024 4:24 PM Question Answer Comments Patient has decision-making capacity? Yes Care Teams Bread Dough Mixer Relationship Specialty Start Date End Date Vipul Cameron APRN [address] [facility] [place] [address] PCP - General 11/09/24 Leoncio Christian MD [address] [place] [id number] Consulting Physician Neurology 03/27/21 Aditi Martin PA [address] [facility] [address] [place] [phone] Physician Research Anthropologist Neurology 09/11/21
== END 2025-03-08 23:59 | disposition home or self-care (01) ==
LOC: RT 10:54
PROVIDERS: PCP Nurse Practitioner Family; Visit Provider Internal Medicine
DX: I25.118 Atherosclerotic heart disease of native coronary artery with other forms of angina pectoris (principal); I10 Essential (primary) hypertension; I65.23 Occlusion and stenosis of bilateral carotid arteries; I08.1 Rheumatic disorders of both mitral and tricuspid valves
CPT/HCPCS: 93306